=== PATIENT | female | born 1935 | race Caucasian/White ===

== ENCOUNTER → 2017-02-08 | Outpatient (REF) | payer MEDICARE, OTHER ==
[2017-02-08 12:15] LABS: ALBUMIN 3.7 GM/DL (3.2-5.2); ALBUMIN/GLOBULIN RATIO 1.23 (1.00-1.93); ALKALINE PHOSPHATASE 65 U/L (45-117); ALT/SGPT 17 U/L (12-78); ANION GAP 6 MEQ/L (8-16); AST/SGOT 17 U/L (15-37); BILIRUBIN,TOTAL 0.5 MG/DL (0.2-1.0); BLOOD UREA NITROGEN 12 MG/DL (7-18); CALCIUM LEVEL 9.5 MG/DL (8.8-10.2); CARBON DIOXIDE LEVEL 31 MEQ/L (21-32); CHLORIDE LEVEL 106 MEQ/L (98-107); CREATININE FOR GFR 0.69 MG/DL (0.55-1.02); GLOMERULAR FILTRATION RATE > 60.0 (>32); GLUCOSE, FASTING 127 MG/DL (83-110); POTASSIUM SERUM 4.4 MEQ/L (3.5-5.1); SODIUM LEVEL 143 MEQ/L (136-145); TOTAL PROTEIN 6.7 GM/DL (6.4-8.2)
== END ==
LOC: M SFHCPLAZ 09:35
PROVIDERS: ATTEND Internal Medicine
DX: R73.01 Impaired fasting glucose (principal); E89.0 Postprocedural hypothyroidism; M85.80 Other specified disorders of bone density and structure, unspecified site

== ENCOUNTER → 2017-06-15 | Outpatient (CLI) | payer MEDICARE, OTHER ==
[2017-06-15 13:13] LABS: ALBUMIN 3.7 GM/DL (3.2-5.2); ALBUMIN/GLOBULIN RATIO 1.37 (1.00-1.93); BILIRUBIN,DIRECT 0.2 MG/DL (0.0-0.2); BILIRUBIN,TOTAL 0.7 MG/DL (0.2-1.0); TOTAL PROTEIN 6.4 GM/DL (6.4-8.2)
== END ==
LOC: M WUC 08:49
PROVIDERS: ATTEND Nurse Practitioner Family
DX: E78.2 Mixed hyperlipidemia (principal)

== ENCOUNTER → 2017-08-02 | Outpatient (CLI) | payer MEDICARE, BC ==
--- NOTE | 2017-08-02 10:36 | REPMRS ---
Patient History The patient states she had a clinical breast exam in 07/2017. Patient is postmenopausal. Family history of breast cancer in paternal aunt at age 50 or over and prostate cancer in son at age 49. Taking unspecified hormones for 25 years. Digital Woman Screen Mammo: August 02, 2017 - Exam #: [id number] Bilateral CC and MLO view(s) were taken. Technologist: Linda Smith, Technologist Prior study comparison: July 28, 2016, digital woman screen mammo performed at [facility]. July 24, 2015, digital woman screen mammo performed at [facility]. FINDINGS: The breast tissue is heterogeneously dense. This may lower the sensitivity of mammography. There has been no change in the appearance of the mammogram from the prior studies. There is a moderate amount of residual fibroglandular tissue which is fairly symmetric. There is no interval development of dominant mass, areas of architectural distortion, or clustered microcalcification typical of malignancy. ASSESSMENT: BI-RADS/ACR category 1 mammogram. Negative. Recommendation Routine screening mammogram in 1 year (for women over age 40). This mammogram was interpreted with the aid of an FDA-approved computer-aided dectection system. Electronically Signed By: Michael Londono MD 08/02/17 [id number]
== END ==
LOC: M WHC 09:04
PROVIDERS: ATTEND Nurse Practitioner Family
DX: Z01.419 Encounter for gynecological examination (general) (routine) without abnormal findings (principal); Z12.31 Encounter for screening mammogram for malignant neoplasm of breast; R92.8 Other abnormal and inconclusive findings on diagnostic imaging of breast; Z78.0 Asymptomatic menopausal state; Z79.890 Hormone replacement therapy
CPT/HCPCS: G0101; G0202

== ENCOUNTER → 2017-08-11 | Outpatient (REF) | payer MEDICARE, OTHER ==
[2017-08-11 11:17] LABS: ALBUMIN 3.6 GM/DL (3.2-5.2); ALKALINE PHOSPHATASE 57 U/L (45-117); ALT/SGPT 24 U/L (12-78); ANION GAP 7 MEQ/L (8-16); AST/SGOT 15 U/L (15-37); BILIRUBIN,TOTAL 0.7 MG/DL (0.2-1.0); BLOOD UREA NITROGEN 10 MG/DL (7-18); CALCIUM LEVEL 9.3 MG/DL (8.8-10.2); CARBON DIOXIDE LEVEL 29 MEQ/L (21-32); CHLORIDE LEVEL 107 MEQ/L (98-107); CHOLESTEROL LEVEL 203 MG/DL (<200); CREATININE FOR GFR 0.61 MG/DL (0.55-1.02); GLOMERULAR FILTRATION RATE > 60.0 (>32); GLUCOSE, FASTING 95 MG/DL (83-110); POTASSIUM SERUM 4.5 MEQ/L (3.5-5.1); SODIUM LEVEL 143 MEQ/L (136-145); TOTAL PROTEIN 6.6 GM/DL (6.4-8.2); TRIGLYCERIDES LEVEL 191 MG/DL (<150)
== END ==
LOC: M SFHCPLAZ 07:49
PROVIDERS: ATTEND Internal Medicine
DX: R73.01 Impaired fasting glucose (principal); E78.00 Pure hypercholesterolemia, unspecified

== ENCOUNTER → 2018-02-14 | Outpatient (REF) | payer MEDICARE, OTHER ==
[2018-02-14 11:45] LABS: MEAN CORPUSCULAR HEMOGLOBIN 29.9 pg (27.0-33.0); MEAN CORPUSCULAR HGB CONC 32.6 g/dl (32.0-36.5); MEAN CORPUSCULAR VOLUME 91.7 fl (80.0-96.0); PLATELET COUNT, AUTOMATED 223 10^3/uL (150-450); RED BLOOD COUNT 4.69 10^6/uL (4.00-5.40); RED CELL DISTRIBUTION WIDTH 12.4 % (11.5-14.5); WHITE BLOOD COUNT 7.2 10^3/uL (4.0-10.0)
[2018-02-14 12:07] LABS: ESTIMATED AVERAGE GLUCOSE 126 MG/DL (60-110)
[2018-02-14 12:33] LABS: ALBUMIN 3.7 GM/DL (3.2-5.2); ALBUMIN/GLOBULIN RATIO 1.16 (1.00-1.93); ALKALINE PHOSPHATASE 67 U/L (45-117); ALT/SGPT 14 U/L (12-78); ANION GAP 5 MEQ/L (8-16); AST/SGOT 16 U/L (7-37); BILIRUBIN,TOTAL 0.6 MG/DL (0.2-1.0); BLOOD UREA NITROGEN 14 MG/DL (7-18); CALCIUM LEVEL 8.9 MG/DL (8.8-10.2); CARBON DIOXIDE LEVEL 30 MEQ/L (21-32); CHLORIDE LEVEL 111 MEQ/L (98-107); CHOLESTEROL LEVEL 163 MG/DL (<200); CHOLESTEROL RISK RATIO 3.975 (<5); CREATININE FOR GFR 0.66 MG/DL (0.55-1.30); GLOMERULAR FILTRATION RATE > 60.0 (>32); GLUCOSE, FASTING 100 MG/DL (70-100); HDL CHOLESTEROL 41 MG/DL (>40); LDL CHOLESTEROL 87.8 MG/DL (<100); MAGNESIUM LEVEL 2.3 MG/DL (1.8-2.4); NON-HDL-C 122 MG/DL; POTASSIUM SERUM 4.3 MEQ/L (3.5-5.1); SODIUM LEVEL 146 MEQ/L (136-145); TOTAL PROTEIN 6.9 GM/DL (6.4-8.2); TRIGLYCERIDES LEVEL 171 MG/DL (<150)
== END ==
LOC: M SFHCPLAZ 08:02
DX: Z79.890 Hormone replacement therapy (principal); I25.10 Atherosclerotic heart disease of native coronary artery without angina pectoris; R73.01 Impaired fasting glucose; E78.00 Pure hypercholesterolemia, unspecified; E89.0 Postprocedural hypothyroidism
CPT/HCPCS: 83735

== ENCOUNTER → 2018-08-03 | Outpatient (CLI) | payer MEDICARE, BC | LOC: M WHC 11:05 | DX: Z12.31 Encounter for screening mammogram for malignant neoplasm of breast (principal); Z01.419 Encounter for gynecological examination (general) (routine) without abnormal findings (principal); Z78.0 Asymptomatic menopausal state; Z92.29 Personal history of other drug therapy; Z12.12 Encounter for screening for malignant neoplasm of rectum | CPT/HCPCS: 77067 ==

== ENCOUNTER → 2018-08-29 | Outpatient (REF) | payer MEDICARE, OTHER ==
[2018-08-29 13:18] LABS: ESTIMATED AVERAGE GLUCOSE 117 MG/DL (60-110); HEMOGLOBIN A1c 5.7 %
[2018-08-29 13:36] LABS: ALBUMIN 3.8 GM/DL (3.2-5.2); ALBUMIN/GLOBULIN RATIO 1.27 (1.00-1.93); ALKALINE PHOSPHATASE 66 U/L (45-117); ALT/SGPT 16 U/L (12-78); ANION GAP 10 MEQ/L (8-16); AST/SGOT 19 U/L (7-37); BILIRUBIN,TOTAL 0.9 MG/DL (0.2-1.0); BLOOD UREA NITROGEN 12 MG/DL (7-18); CALCIUM LEVEL 8.8 MG/DL (8.8-10.2); CARBON DIOXIDE LEVEL 26 MEQ/L (21-32); CHLORIDE LEVEL 107 MEQ/L (98-107); CHOLESTEROL LEVEL 193 MG/DL (<200); CHOLESTEROL RISK RATIO 5.078 (<5); GLOMERULAR FILTRATION RATE > 60.0 (>32); GLUCOSE, FASTING 111 MG/DL (70-100); HDL CHOLESTEROL 38 MG/DL (>40); LDL CHOLESTEROL 115 MG/DL (<100); MAGNESIUM LEVEL 2.1 MG/DL (1.8-2.4); NON-HDL-C 155 MG/DL; POTASSIUM SERUM 4.6 MEQ/L (3.5-5.1); SODIUM LEVEL 143 MEQ/L (136-145); TOTAL PROTEIN 6.8 GM/DL (6.4-8.2); TRIGLYCERIDES LEVEL 201 MG/DL (<150)
== END ==
LOC: M SFHCPLAZ 07:50
DX: I25.10 Atherosclerotic heart disease of native coronary artery without angina pectoris (principal); R73.01 Impaired fasting glucose; E78.00 Pure hypercholesterolemia, unspecified; M85.80 Other specified disorders of bone density and structure, unspecified site
CPT/HCPCS: 83735

== ENCOUNTER → 2018-12-26 | Outpatient (REF) | payer MEDICARE, OTHER ==
[2018-12-26 10:41] LABS: HEMOGLOBIN A1c 6.1 %
[2018-12-26 10:53] LABS: ALBUMIN 3.8 GM/DL (3.2-5.2); ALT/SGPT 16 U/L (12-78); BILIRUBIN,TOTAL 0.8 MG/DL (0.2-1.0); BLOOD UREA NITROGEN 13 MG/DL (7-18); CALCIUM LEVEL 9.3 MG/DL (8.8-10.2); CARBON DIOXIDE LEVEL 31 MEQ/L (21-32); CHLORIDE LEVEL 106 MEQ/L (98-107); CHOLESTEROL LEVEL 177 MG/DL (<200); CHOLESTEROL RISK RATIO 4.116 (<5); CREATININE FOR GFR 0.68 MG/DL (0.55-1.30); FOLATE > 24.0 NG/ML; GLOMERULAR FILTRATION RATE > 60.0 (>32); GLUCOSE, FASTING 104 MG/DL (70-100); HDL CHOLESTEROL 43 MG/DL (>40); LDL CHOLESTEROL 98 MG/DL (<100); NON-HDL-C 134 MG/DL; POTASSIUM SERUM 4.6 MEQ/L (3.5-5.1); SODIUM LEVEL 142 MEQ/L (136-145); TOTAL PROTEIN 6.5 GM/DL (6.4-8.2); TRIGLYCERIDES LEVEL 181 MG/DL (<150)
[2018-12-26 11:07] LABS: HEMATOCRIT 45.4 % (36.0-47.0); HEMOGLOBIN 14.6 g/dl (12.0-15.5); MEAN CORPUSCULAR HEMOGLOBIN 30.5 pg (27.0-33.0); MEAN CORPUSCULAR HGB CONC 32.2 g/dl (32.0-36.5); MEAN CORPUSCULAR VOLUME 94.8 fl (80.0-96.0); PLATELET COUNT, AUTOMATED 227 10^3/uL (150-450); RED BLOOD COUNT 4.79 10^6/uL (4.00-5.40); WHITE BLOOD COUNT 6.7 10^3/uL (4.0-10.0)
[2018-12-27 11:05] LABS: VITAMIN B12 LEVEL 1101 PG/ML (232-1245)
== END ==
LOC: M SFHCPLAZ 08:01
PROVIDERS: ATTEND Internal Medicine
DX: G62.9 Polyneuropathy, unspecified (principal); E78.00 Pure hypercholesterolemia, unspecified; R73.01 Impaired fasting glucose; E89.0 Postprocedural hypothyroidism

== ENCOUNTER → 2019-07-19 | Outpatient (REF) | payer MEDICARE, OTHER ==
[2019-07-19 11:57] LABS: ALBUMIN 3.6 GM/DL (3.2-5.2); ALT/SGPT 16 U/L (12-78); BILIRUBIN,TOTAL 0.8 MG/DL (0.2-1.0); BLOOD UREA NITROGEN 12 MG/DL (7-18); CALCIUM LEVEL 9.4 MG/DL (8.8-10.2); CARBON DIOXIDE LEVEL 29 MEQ/L (21-32); CHLORIDE LEVEL 109 MEQ/L (98-107); CHOLESTEROL LEVEL 149 MG/DL (<200); CHOLESTEROL RISK RATIO 3.547 (<5); CREATININE FOR GFR 0.74 MG/DL (0.55-1.30); GLOMERULAR FILTRATION RATE > 60.0 (>32); GLUCOSE, FASTING 109 MG/DL (70-100); HDL CHOLESTEROL 42 MG/DL (>40); LDL CHOLESTEROL 80 MG/DL (<100); NON-HDL-C 107 MG/DL; POTASSIUM SERUM 4.5 MEQ/L (3.5-5.1); SODIUM LEVEL 143 MEQ/L (136-145); TOTAL PROTEIN 6.4 GM/DL (6.4-8.2); TRIGLYCERIDES LEVEL 134 MG/DL (<150)
[2019-07-19 12:16] LABS: MALB URINE SIEMENS 21.3 MG/L; MAU/CREAT RATIO 13.7 MCG/MG (0.0-30.0)
== END ==
LOC: M SFHCPLAZ 07:50
PROVIDERS: ATTEND Internal Medicine
DX: E78.00 Pure hypercholesterolemia, unspecified (principal); R73.01 Impaired fasting glucose; E89.0 Postprocedural hypothyroidism

== ENCOUNTER → 2019-08-03 | Outpatient (CLI) | payer MEDICARE, BC ==
--- NOTE | 2019-08-03 10:58 | REP ---
BILATERAL SCREENING DIGITAL MAMMOGRAM WITH 3D TOMOSYNTHESIS: There are no palpable abnormalities or other breast complaints. The the patient states she had a clinical breast examination July,. The the patient states she performs self-breast examinations 12 times per year. The Tyrer Cuzick Score is: 1.0% . Comparison is 07/23/2014. The breasts are heterogeneously dense, which could obscure small masses. There is no dominant mass, micro calcific cluster or architectural distortion that would indicate malignancy. There are no additional findings on 3D tomosynthesiss. There is no change from the prior study. Impression: BIRADS/ACR category 1 mammogram. Negative. Recommendation: Routine annual screening mammography. Because of the increased breast density, annual adjunctive breast MRI in addition to screening mammography is recommended. These can be performed at alternating six month intervals. This mammogram was interpreted with the aid of a FDA approved computer-aided detection system. A. Negative mammogram reports should not delay biopsy if a dominant or clinically suspicious mass is present. B. Not all breast cancers are identified by mammography or tomosynthesis. C. Adenosis and dense breasts may obscure an underlying neoplasm. Patient letter M1 dense breasts. Electronically Signed by Michael Odell MD 08/03/2019 10:50 A
== END ==
LOC: M WHC 08:27
PROVIDERS: ATTEND Nurse Practitioner Family
DX: Z01.419 Encounter for gynecological examination (general) (routine) without abnormal findings (principal); Z12.31 Encounter for screening mammogram for malignant neoplasm of breast; Z12.12 Encounter for screening for malignant neoplasm of rectum
CPT/HCPCS: 77063; 77067; 82270; G0101

== ENCOUNTER → 2020-07-08 | Outpatient (CLI) | payer MEDICARE, OTHER ==
[2020-07-08 13:02] LABS: HEMATOCRIT 46.7 % (36.0-47.0); HEMOGLOBIN 14.9 g/dl (12.0-15.5); MEAN CORPUSCULAR HEMOGLOBIN 30.2 pg (27.0-33.0); MEAN CORPUSCULAR HGB CONC 31.9 g/dl (32.0-36.5); MEAN CORPUSCULAR VOLUME 94.7 fl (80.0-96.0); PLATELET COUNT, AUTOMATED 241 10^3/uL (150-450); RED BLOOD COUNT 4.93 10^6/uL (4.00-5.40); WHITE BLOOD COUNT 7.7 10^3/uL (4.0-10.0)
[2020-07-08 13:26] LABS: ALBUMIN 3.6 GM/DL (3.2-5.2); ALT/SGPT 16 U/L (12-78); BILIRUBIN,TOTAL 0.8 MG/DL (0.2-1.0); BLOOD UREA NITROGEN 13 MG/DL (7-18); CALCIUM LEVEL 9.5 MG/DL (8.8-10.2); CARBON DIOXIDE LEVEL 31 MEQ/L (21-32); CHLORIDE LEVEL 108 MEQ/L (98-107); CHOLESTEROL LEVEL 151 MG/DL (<200); CHOLESTEROL RISK RATIO 3.355 (<5); GLOMERULAR FILTRATION RATE > 60.0 (>32); GLUCOSE, FASTING 98 MG/DL (70-100); HDL CHOLESTEROL 45 MG/DL (>40); LDL CHOLESTEROL 82 MG/DL (<100); MAGNESIUM LEVEL 2.4 MG/DL (1.8-2.4); NON-HDL-C 106 MG/DL; POTASSIUM SERUM 4.1 MEQ/L (3.5-5.1); SODIUM LEVEL 144 MEQ/L (136-145); TOTAL 25(OH) VITAMIN D 63.5 NG/ML (30.0-100.0); TOTAL PROTEIN 6.6 GM/DL (6.4-8.2); TRIGLYCERIDES LEVEL 122 MG/DL (<150)
[2020-07-08 13:59] LABS: HEMOGLOBIN A1c 5.8 %
== END ==
LOC: M PLALAB 08:02
PROVIDERS: ATTEND Internal Medicine
DX: R73.01 Impaired fasting glucose (principal); G62.9 Polyneuropathy, unspecified; E61.2 Magnesium deficiency; Z13.29 Encounter for screening for other suspected endocrine disorder

== ENCOUNTER → 2020-08-07 | Outpatient (CLI) | payer MEDICARE, BC, OTHER ==
--- NOTE | 2020-08-07 10:48 | REPMRS ---
Patient History The patient states she had a clinical breast exam in 07/2020. Patient is postmenopausal. Family history of breast cancer at age 50 or over in paternal aunt, prostate cancer at age 49 in son, prostate cancer under age 50 in unspecified relative. Taking unspecified hormones for 28 years. 3D TOMOSYNTHESIS WAS PERFORMED. The [facility] lifetime risk for breast cancer is 0.5%. VOLPARA DENSITY C. Digital Woman Screen Mammo: August 07, 2020 - Exam #: [id number] Bilateral CC and MLO view(s) were taken. Technologist: Linda Smith, Technologist Prior study comparison: August 03, 2019, bilateral digital woman screen mammo performed at [facility]. August 03, 2018, bilateral digital woman screen mammo performed at [facility]. FINDINGS: The breast tissue is heterogeneously dense. This may lower the sensitivity of mammography. There has been no change in the appearance of the mammogram from the prior studies. There is a moderate amount of residual fibroglandular tissue which is fairly symmetric. There is no interval development of dominant mass, areas of architectural distortion, or clustered microcalcification typical of malignancy. Assessment: BI-RADS/ACR category 1 mammogram. Negative Mammogram. Recommendation Routine screening mammogram in 1 year (for women over age 40). This mammogram was interpreted with the aid of an FDA-approved computer-aided dectection system. Electronically Signed By: Michael Londono MD 08/07/20 2423
== END ==
LOC: M WHC 08:44
PROVIDERS: ATTEND Nurse Practitioner Family
DX: Z12.31 Encounter for screening mammogram for malignant neoplasm of breast (principal); Z78.0 Asymptomatic menopausal state; Z80.42 Family history of malignant neoplasm of prostate; Z92.29 Personal history of other drug therapy

== ENCOUNTER → 2021-06-16 | Outpatient (CLI) | payer MEDICARE, BC, OTHER ==
[2021-06-16 10:42] LABS: BASO % 0.5 % (0.0-1.0); EOS # 0.2 10^3/uL (0.0-0.5); HEMATOCRIT 46.2 % (36.0-47.0); HEMOGLOBIN 14.6 g/dl (12.0-15.5); LYMPH % 26.7 % (24.0-44.0); MEAN CORPUSCULAR HEMOGLOBIN 29.7 pg (27.0-33.0); MEAN CORPUSCULAR HGB CONC 31.6 g/dl (32.0-36.5); MEAN CORPUSCULAR VOLUME 94.1 fl (80.0-96.0); MONO # 0.5 10^3/uL (0.0-0.8); MONO % 6.7 % (2.0-8.0); NEUTROPHILS # 4.7 10^3/uL (1.5-8.5); NEUTROPHILS % 63.8 % (36.0-66.0); PLATELET COUNT, AUTOMATED 251 10^3/uL (150-450); RED BLOOD COUNT 4.91 10^6/uL (4.00-5.40); WHITE BLOOD COUNT 7.4 10^3/uL (4.0-10.0)
[2021-06-16 11:16] LABS: ALBUMIN 3.7 GM/DL (3.2-5.2); ALT/SGPT 16 U/L (12-78); BLOOD UREA NITROGEN 17 MG/DL (7-18); CALCIUM LEVEL 9.3 MG/DL (8.8-10.2); CARBON DIOXIDE LEVEL 29 MEQ/L (21-32); CHLORIDE LEVEL 110 MEQ/L (98-107); CHOLESTEROL LEVEL 148 MG/DL (<200); CHOLESTEROL RISK RATIO 3.083 (<5); CREATININE FOR GFR 0.65 MG/DL (0.55-1.30); GLOMERULAR FILTRATION RATE > 60.0 (>32); GLUCOSE, FASTING 108 MG/DL (70-100); HDL CHOLESTEROL 48 MG/DL (>40); LDL CHOLESTEROL 74 MG/DL (<100); NON-HDL-C 100 MG/DL; SODIUM LEVEL 144 MEQ/L (136-145); TOTAL PROTEIN 6.7 GM/DL (6.4-8.2); TRIGLYCERIDES LEVEL 132 MG/DL (<150)
[2021-06-16 11:36] LABS: HEMOGLOBIN A1c 5.5 %
== END ==
LOC: M PLALAB 07:06
PROVIDERS: ATTEND Internal Medicine
DX: R73.01 Impaired fasting glucose (principal); G62.9 Polyneuropathy, unspecified; E89.0 Postprocedural hypothyroidism; E78.00 Pure hypercholesterolemia, unspecified

== ENCOUNTER → 2021-08-20 | Outpatient (CLI) | payer MEDICARE, BC, OTHER | LOC: M WHC 08:53 | PROVIDERS: ATTEND Nurse Practitioner Women's Health | DX: Z01.419 Encounter for gynecological examination (general) (routine) without abnormal findings (principal) ==

== ENCOUNTER 2021-10-03 10:23 | Emergency (ER) | payer MEDICARE, BC, OTHER ==
[~2021-10-03] VITALS: Ht 172.7 cm; Wt 65.0 kg
[2021-10-03] MEDS ORDERED: ASPIRIN 81 MG CHEW TABLET PO ONE (10:55)
[2021-10-03] MEDS ORDERED: DOCU-153 PO (10:57)
[2021-10-03] MEDS ORDERED: ECOT81TA5 PO (10:57)
[2021-10-03] MEDS ORDERED: LOSA25TA14 PO (10:57)
--- NOTE | 2021-10-03 11:12 | REP ---
INDICATION: CHEST PAIN COMPARISON: 04/22/2018 TECHNIQUE: Portable AP view of the chest FINDINGS: The mediastinum and cardiac silhouette are stable and within normal limits for portable technique. The lung duron are clear without acute consolidation, effusion, or pneumothorax. Skeletal structures are intact. IMPRESSION: No acute cardiopulmonary process appreciated. <Electronically signed by Lamberto Enriquez > 10/03/21 1100
[2021-10-03 11:19] LABS: BASO % 0.4 % (0.0-1.0); EOS # 0.1 10^3/uL (0.0-0.5); EOS % 1.1 % (0.0-3.0); HEMATOCRIT 44.9 % (36.0-47.0); HEMOGLOBIN 14.5 g/dl (12.0-15.5); LYMPH # 1.2 10^3/uL (1.5-5.0); LYMPH % 11.2 % (24.0-44.0); MEAN CORPUSCULAR HEMOGLOBIN 29.8 pg (27.0-33.0); MEAN CORPUSCULAR HGB CONC 32.3 g/dl (32.0-36.5); MEAN CORPUSCULAR VOLUME 92.4 fl (80.0-96.0); MONO # 0.5 10^3/uL (0.0-0.8); MONO % 4.4 % (2.0-8.0); NEUTROPHILS % 82.4 % (36.0-66.0); PLATELET COUNT, AUTOMATED 229 10^3/uL (150-450); RED BLOOD COUNT 4.86 10^6/uL (4.00-5.40)
[2021-10-03 11:27] LABS: INR 1.01; PROTHROMBIN TIME 13.7 SECONDS (12.7-14.5)
[2021-10-03 11:28] LABS: PARTIAL THROMBOPLASTIN TIME 29.4 SECONDS (25.9-37.0)
--- OUTSIDE RECORDS SUMMARY | 2021-10-03 11:34 | CCD | Continuity of Care Document ---
Author Author Linda WHEELER RECORDS MANAGEMENT MANAGER-C Organization Unknown Address [address], [address] [place] [address] Phone [phone] Care Team Providers Care Hand Stapler Name Role Phone Hero Rizzo MD [facility] [phone] Problems Description No Information Available Social History Type Date Description Comments Sex Unknown Tobacco Use Start: Unknown End: Unknown Former Cigarette Smo ker Quit 1967 ETOH Use Denies alcohol use Tobacco Use Start: Unknown End: Unknown Patient is a former smoker quit in quit in [place] Exposure moderate amount of sun exposure Sun Exposure Has experienced blistering from sunburns Sun Exposure Has never used tanning bed Sun Exposure Uses > 30 SPF Allergies and adverse reactions Active Allergies Criticality Reaction | Severity Comments Date Penicillin Unable to assess criticality 02/15/2008 Demerol Unable to assess criticality 02/15/2008 Ticlid Unable to assess criticality 02/15/2008 Clarinex Unable to assess criticality 02/15/2008 Naproxen Unable to assess criticality 02/15/2008 Oxycontin Unable to assess criticality 02/15/2008 Darvocet Unable to assess criticality 02/15/2008 Protonix Unable to assess criticality 03/11/2010 Actonel Unable to assess criticality 03/11/2010 sulfa Unable to assess criticality 03/11/2010 Nortriptyline Unable to assess criticality 04/25/2015 Lyrica Unable to assess criticality 04/25/2015 Cymbalta Unable to assess criticality 04/25/2015 Gabapentin Unable to assess criticality 04/25/2015 Lisinopril Unable to assess criticality 07/31/2019 Crestor Unable to assess criticality 07/31/2019 Medications Active Medications SIG Qnty Indications Ordering Provide r Date CBD Relieving Salve From Hemp Phyl M dayami, [facility] 07/31/2019 Centrum Silver Unknown Turmeric Curcumin Unknown 000 Probiotic Unknown Carvedilol Unknown Losartan Unknown Nitro Unknown Stool Softener Unknown Estrace Unknown Non-Aspirin PM Extra Strength Unknow n Magnesium Unknown Calcium + D Unknown Folic Acid Unknown Vitamin B12 Unknown Estradiol Unknown Medroxyprogesterone Acetate Unknown Vitamin D3 Unknown Cranberry Unknown Fish Oil Unknown Vitamin C Unknown Aspirin Unknown Immunizations Description No Information Available Vital Signs Date Vital Result Comment 08/04/2021 7:59am BP Systolic 132 mmHg BP Diastolic 82 mmHg Heart Rate 74 /min Respiratory Rate 16 /min 07/31/2020 8:25am BP Systolic 122 mmHg BP Diastolic 82 mmHg Body Temperature 97.6 F Results Description No Information Available Procedures Date Code Description Status 08/04/2021 88933 Office/Outpatient Established Mo d MDM 30-39 Min Completed Medical Devices Description No Information Available Encounters Type Date Location Provider Dx Diagnosis Office Visit 08/04/2021 8:00a Main Office CHACHO Ann D 22.5 Melanocytic nevi of trunk L81.4 Other melanin hyperpigmentat ion D18.01 Hemangioma of skin and subcu taneous tissue L82.1 Other seborrheic keratosis D22.62 Melanocytic nevi of left upp er limb, including shoulder D22.72 Melanocytic nevi of left low er limb, including hip D22.71 Melanocytic nevi of right lo wer limb, including hip I83.93 Asymptomatic varicose veins of bilateral lower extremities Z12.83 Encounter for screening for malignant neoplasm of skin Assessments Date Code Description Provider 08/04/2021 D22.5 Melanocytic nevi of trunk CHACHO Ann 08/04/2021 L81.4 Other melanin hyperpigmentation CHACHO Ann 08/04/2021 D18.01 Hemangioma of skin and subcutane ous tissue CHACHO Ann 08/04/2021 L82.1 Other seborrheic keratosis CHACHO Franco 08/04/2021 D22.62 Melanocytic nevi of left upper l imb, including shoulder CHACHO Ann 08/04/2021 D22.72 Melanocytic nevi of left lower l imb, including hip CHACHO Ann 08/04/2021 D22.71 Melanocytic nevi of right lower limb, including hip CHACHO Ann 08/04/2021 I83.93 Asymptomatic varicose veins of b ilateral lower extremities CHACHO Ann 08/04/2021 Z12.83 Encounter for screening for [facility] neoplasm of skin CHACHO Ann Plan of Treatment Future Appointment(s):* 08/05/2022 8:00 am - CHACHO Ann at Main Office 08/04/2021 - CHACHO Ann* D22.5 Melanocytic nevi of trunk* Comments:* Nevi on trunk appear healthy. Monitor for changes. Literature given on how to perform monthly self skin exam. Sun protection and sunscreen use discussed. Should any moles change in shape or color, itch, bleed or burn, pt will contact office for evaluation sooner than their interval appointment. * L81.4 Other melanin hyperpigmentation* Comments:* Sunscreen use and sun protection discussed. * D18.01 Hemangioma of skin and subcutaneous tissue* Comments:* Reassurance. * L82.1 Other seborrheic keratosis* Comments:* Reassurance.Discussed seborrheic keratoses are benign warty growths, patients will get more of them as they age. * D22.62 Melanocytic nevi of left upper limb, including shoulder* Comments:* Nevi on L arm appear healthy. Monitor for changes. * D22.72 Melanocytic nevi of left lower limb, including hip* Comments:* Nevi on L leg appear healthy. Monitor for changes. * D22.71 Melanocytic nevi of right lower limb, including hip* Comments:* Nevi on R leg appear healthy. Monitor for changes. * I83.93 Asymptomatic varicose veins of bilateral lower extremities* Comments:* Discussed that no treatment is necessary for these unless they become symptomatic.Reassurance.Call with problems. * Z12.83 Encounter for screening for malignant neoplasm of skin* Comments:* See above. * Follow up:* Yearly/PRN - [facility] Functional Status Description No Information Available Mental Status Description No Information Available Referrals Description No Information Available"
--- OUTSIDE RECORDS SUMMARY | 2021-10-03 11:34 | CCD | Continuity of Care Document ---
Author Organization Unknown Address Unknown Phone Unavailable Care Team Providers Care Adoption Services Manager Name Role Phone Heor Rizzo MD [facility] [phone] Lamberto Torres [facility] [phone] Problems Active Problems Provider Date Coronary arteriosclerosis ESTELA Araujo Onset: 02/17/2012 Old myocardial infarction ESTELA Araujo Onset: 02/17/2012 Patient post percutaneous transluminal coronary angiop lasty ESTELA Araujo Onset: 02/17/2012 Benign hypertensive heart disease without congestive h eart failure ESTELA Araujo Onset: 02/17/2012 Electrocardiogram abnormal ESTELA Araujo Onset : 02/17/2012 Premature beats ESTELA Araujo Onset: 02/16 Pure hypercholesterolemia ESTELA Araujo Onset: 02/17/2012 Heart murmur Emilee Barbosa NP Onset: 10/19/2014 Aortic valve disorder Emilee Barbosa NP Onset: 04/19/2015 Mitral valve disorder Emilee Barbosa NP Onset: 04/19/2015 Mixed hyperlipidemia CONSUELO Hernandez Onset: 03/16/2018 Dietary management surveillance CONSUELO Hernandez Onset: 03/16/2018 Dyspnea CONSUELO Hernandez Onset: 04/22/2018 Other cardiomyopathies CONSUELO Hernandez Onset: 8 Chronic ischemic heart disease CONSUELO Hernandez Onset: 0 05/20/2018 Hypertensive heart disease with heart failure CONSUELO Rojas Onset: 06/13/2019 Social History Type Date Description Comments Sex Unknown Tobacco Use Start: Unknown End: Unknown Former Cigarette Smo ker up to 1ppd x20 yrs, quit 1971 ETOH Use Does not consume alcohol Tobacco Use Start: Unknown End: Unknown Patient is a former smoker HX of 20 yrs. 1ppd quit in her early 30's Smoking Status Reviewed: 01/17/21 Patient is a former smoker HX of 20 yrs. 1ppd quit in her early 30's Exercise Type/Frequency Walks daily 10-20 mi n in better weather Exercise Limitations Neuropathy Exercise Limitations Fatigue Exercise Limitations Orthopedic Problem torn rot ator cuff - right Allergies, Adverse Reactions, Alerts Active Allergies Criticality Reaction | Severity Comments Date Penicillin Unable to assess criticality n/v 11/23/2006 Naproxen Unable to assess criticality "numbness" i n lips, "flaky" 11/23/2006 Ticlid Unable to assess criticality rash, fever 11/23/2006 Demerol Unable to assess criticality vomiting, na usea 11/23/2006 Sulfa Unable to assess criticality rash 11/23/2006 Morphine Sulfate Unable to assess criticality vomiting 11/23/2006 Oxycontin Unable to assess criticality vomiting 11/23/2006 Clarinex Unable to assess criticality palpitations 11/23/2006 Protonix Unable to assess criticality difficulty s wallowing 09/23/2007 Propoxyphene Unable to assess criticality nausea 08/20/2011 Darvocet Unable to assess criticality nausea 08/20/2011 Actonel Unable to assess criticality jaw pain 08/20/2011 Lyrica Unable to assess criticality numb lips/blurred vision 10/19/2014 Nortriptyline Unable to assess criticality nausea, emile rrhea 04/28/2017 Cymbalta Unable to assess criticality diarrhea, na usea 04/28/2017 Gabapentin Unable to assess criticality dizziness, t ired 05/15/2018 Lisinopril Unable to assess criticality cough 12/06/2019 Crestor Unable to assess criticality fatigue 12/06/2019 Medications Active Medications SIG Qnty Indications Ordering Provide r Date Medroxyprogesterone Acetate 2.5mg Tablets 1 by mouth 3 times weekly Hero Rizzo MD 01/16 Estradiol 0.5mg Tablets 1 by mouth 3 times weekly in winter; 1 by mouth daily in summer Hero Segundo MD 01/16/2021 Stool Softener 100mg Capsules 1 by mouth twice a day Unknown 12/06/2019 Turmeric Curcumin 500mg Capsules 1 by mouth every day Unknown 12/06/2019 Livalo 2mg Tablets 1 b y mouth once daily 90tabs Omer Roche MD 06/13/2019 Probiotic Capsules 1 by mouth every day Unknown 03/21/2019 Losartan Potassium 25mg Tablets take 1 tablet by mouth every day 30tabs I25.5 Aleksey Fonseca MD 0 07/26/2018 Fish Oil 1000mg Capsules 1 by mouth every day Unknown 05/15/2018 Tylenol PM Extra Strength 500-25mg Tablets 2 by mouth every night at bedtime as needed Unknown 05/15/2018 Calcium 600+D Tablets 2 po b id Unknown 04/26/2016 Nitrostat 0.4mg Tablets Sub 1 sl every 5min x3 as needed for chest pain 25tabs Omer Roche MD 09/18/2013 Cranberry 500mg Capsules 1 po daily Hero Rizzo MD 02/17/2012 Vitamin D-1000 1000Unit Tablets daily Hero Rizzo MD 08/20/2011 Magnesium 500mg Tablets 1 po qd Hero Rizzo MD 06/27/2010 Folic Acid 400mcg Tablets 1 P O daily Hero Rizzo MD 10/31/2008 Aspir-[address] 1 PO daily Aleksey Fonseca MD Vitamin C 500mg Tablets 2 po qd Blade Bravo MD Multi-Vitamin Tablets Daily Hero Rizzo MD Estrace 0.1mg/GM Cream as Dir ected Hero Rizzo MD B-Complex/B-12 TR B-12 TR Tablets ER 1 po daily Unknown Immunizations Description No Information Available Vital Signs Date Vital Result Comment 01/17/2021 8:28am Weight 146.00 lb Home Weight 144lb Height 69 inches 5'9" BMI (Body Mass Index) 21.6 kg/m2 Heart Rate 94 /min BP Systolic Sitting 124 mmHg Ra, medium cuff BP Diastolic Sitting 80 mmHg Ra, medium cuff 07/11/2020 8:41am Weight 148.00 lb Home Weight 147lb Height 69 inches 5'9" BMI (Body Mass Index) 21.9 kg/m2 Heart Rate 95 /min BP Systolic Sitting 136 mmHg BP Diastolic Sitting 70 mmHg Results Test Acquired Date Facility Test Result H/L Range Note CBC without Differential 06/16/2021 [facility] - not inter faced (315)- - White Blood Count 7.4 5.0-10.0 Red Blood Count 4.91 4.00-5.40 Platelets 251 172-450 Hemoglobin 14.6 Hematocrit 46.2 CMP 06/16/2021 [facility] - not interfaced (315)- - Albumin Serum/Plasma 3.7 Alt - SGPT 16 Calcium Ser/Plasma Mass/Vol 9.3 Carbon Dioxide Ser/Plasm 29 Chloride Serum/Plasma 110 Alkaline Phosphatase 68 Potassium 4.0 Protein Total 6.7 Sodium 144 Ast - Sgot 12 BUN - Urea Nitrogen 17 Glucose 108 83-110 Creatinine For GFR 0.65 Lipid Profile/Cardiac Risk Pro 06/16/2021 [facility] - not interfaced (315)- - Triglycerides 132 <150 Cholesterol 148 <200 HDL 48 >40.0 LDL Cholesterol 74 Chol/HDL Ratio 3.083 <5 Laboratory test finding 06/16/2021 [facility] - not interf aced (315)- - Thyroid Stimulating Hormone 2.510 Hemoglobin A1c 06/16/2021 [facility] - not interfaced (315)- - Hemoglobin A1c 5.5 Procedures Date Code Description Status 01/17/2021 05078 Office/Outpatient Established Mo d MDM 30-39 Min Completed 01/17/2021 49502 ECG 12-Lead Completed Medical Devices Description No Information Available Encounters Type Date Location Provider Dx Diagnosis Office Visit 01/17/2021 8:15a Main Office CONSUELO Cooper I25 .10 Athscl heart disease of [place] coronary artery w/o ang pctrs I25.5 Ischemic cardiomyopathy I11.0 Hypertensive heart disease w ith heart failure E78.2 Mixed hyperlipidemia R94.31 Abnormal electrocardiogram [ ECG] [EKG] Z71.3 Dietary counseling and surve illance Assessments Date Code Description Provider 01/17/2021 I25.10 Atherosclerotic heart disease of [place] coronary artery with CONSUELO Cooper 01/17/2021 I25.5 Ischemic cardiomyopathy CONSUELO White 01/17/2021 I11.0 Hypertensive heart disease with heart failure CONSUELO Cooper 01/17/2021 E78.2 Mixed hyperlipidemia CONSUELO Knox 01/17/2021 R94.31 Abnormal electrocardiogram [ECG] [EKG] CONSUELO Cooper 01/17/2021 Z71.3 Dietary counseling and surveilla nce CONSUELO Cooper Plan of Treatment Future Appointment(s):* 07/22/2021 8:15 am - CONSUELO Cooper at Main Office 01/17/2021 - CONSUELO Cooper* I25.10 Atherosclerotic heart disease of [place] coronary artery with* Recommendations:* Continue aspirin and losartan at the current dosages Advised patient to contact our office with any chest pain, shortness of breath, new or concerning symptoms * I25.5 Ischemic cardiomyopathy* Recommendations:* Please limit your salt to less than 2000 mg daily and fluid to less than 1.5 L per day. Please alert our office with a weight gain of > 3 lbs, onset of shortness of breath, or lower extremity edema * I11.0 Hypertensive heart disease with heart failure* Recommendations:* Continue losartan at the current dosage Advised patient to monitor blood pressures at home and to alert our office with readings >140/>90 * E78.2 Mixed hyperlipidemia* Recommendations:* Continue Livalo at the current dosage * R94.31 Abnormal electrocardiogram [ECG] [EKG]* Recommendations:* No further evaluation is needed at this time. * Z71.3 Dietary counseling and surveillance* Recommendations:* Recommended for patient to follow a more whole food diet. Advised patient to avoid overly processed foods and packaged foods. Advised patient to avoid sodas, juices and other liquid calories. Recommended at least 30 minutes of exercise 3 days a week. * All * Follow up:* Follow up in 6 months Functional Status Functional Condition Comment Date Status Independent with all ADL's Activ e Mental Status Description No Information Available Referrals Description No Information Available
--- OUTSIDE RECORDS SUMMARY | 2021-10-03 11:34 | CCD | Continuity of Care Document ---
Author Author Linda VALLECILLO Organization Unknown Address [address] [place] [address] [place] [address] Phone [phone] Care Team Providers Care Ceo And President Name Role Phone Hero Rizzo MD AUTM [phone] Lamberto Torres AUTM [phone] Problems Active Problems Provider Date Coronary arteriosclerosis [...] in her early 30's Smoking Status Reviewed: 07/22/21 Patient is a former smoker HX of [...] SIG Qnty Indications Ordering Provide r Date Vitamin D3 50mcg (1999 Ut) Capsule s 1 by mouth every day Unknown 07/21/2021 Estradiol 0.5mg Tablets 1 by mouth 3 times weekly in winter; 1 by mouth daily in summer Hero Segundo MD 01/16/2021 Medroxyprogesterone Acetate 2.5mg Tablets 1 by mouth 3 times weekly Hero Rizzo MD 01/16 Stool Softener 100mg Capsules 1 by mouth twice a day Unknown 12/06/2019 Turmeric Curcumin 500mg Capsules 1 by mouth every day Unknown 12/06/2019 Livalo 2mg Tablets 1 b y mouth once daily 90tabs Omer Roche MD 06/13/2019 Probiotic Capsules 1 by mouth every day Unknown 03/21/2019 Losartan Potassium 25mg Tablets take 1 tablet by mouth every day 90tabs I25.5 Aleksey Fonseca MD 0 07/26/2018 Fish [...] 1 po daily Hero Rizzo MD 02/17/2012 Magnesium 500mg Tablets 1 po qd Hero [...] TR Tablets ER 1 po daily Unknown Covid-19 vaccine, Unspecified Inj ection Unknown Covid-19 vaccine, Unspecified Inj ection Unknown Immunizations Description No Information Available Vital Signs Date Vital Result Comment 07/22/2021 8:09am Weight 145.00 lb Home Weight 143lb Height 69 inches 5'9" BMI (Body Mass Index) 21.4 kg/m2 Heart Rate 91 /min 01/17/2021 8:28am Weight 146.00 lb Home Weight 144lb Height 69 inches 5'9" BMI (Body Mass Index) 21.6 kg/m2 Heart Rate 94 /min BP Systolic Sitting 124 mmHg Ra, medium cuff BP Diastolic Sitting 80 mmHg Ra, medium cuff Results Test Acquired Date Facility Test Result H/L Range Note CBC without Differential 06/16/2021 [facility] - not inter faced (315)- - White Blood Count 7.4 5.0-10.0 Red Blood Count 4.91 4.00-5.40 Platelets 251 172-450 Hemoglobin 14.6 Hematocrit 46.2 CMP 06/16/2021 [facility] - not interfaced (315)- - Albumin Serum/Plasma 3.7 Alt - SGPT 16 Calcium Ser/Plasma Mass/Vol 9.3 Carbon Dioxide Ser/Plasm 29 Chloride Serum/Plasma 110 Alkaline Phosphatase 68 Potassium 4.0 Protein Total 6.7 Sodium 144 Ast - Sgot 12 BUN - Urea Nitrogen 17 Glucose 108 83-110 Creatinine For GFR 0.65 Lipid Profile/Cardiac Risk Pro 06/16/2021 [facility] - not interfaced (315)- - Triglycerides 132 <150 Cholesterol 148 <200 HDL 48 >40.0 LDL Cholesterol 74 Chol/HDL Ratio 3.083 <5 Laboratory test finding 06/16/2021 [facility] - not interf aced (315)- - Thyroid Stimulating Hormone 2.510 Hemoglobin A1c 06/16/2021 [facility] - not interfaced (315)- - Hemoglobin A1c 5.5 Procedures Date Code Description Status 07/22/2021 07295 Office/Outpatient Established Mo d MDM 30-39 Min Completed 07/22/2021 31573 ECG 12-Lead Completed Medical Devices Description No Information Available Encounters Type Date Location Provider Dx Diagnosis Office Visit 07/22/2021 8:15a Main Office CONSUELO Cooper I25 .10 Athscl heart disease of [place] coronary artery w/o ang pctrs I25.5 Ischemic cardiomyopathy I11.0 Hypertensive heart disease w ith heart failure E78.2 Mixed hyperlipidemia R94.31 Abnormal electrocardiogram [ ECG] [EKG] Z71.3 Dietary counseling and surve illance Assessments Date Code Description Provider 07/22/2021 I25.10 Atherosclerotic heart disease of [place] coronary artery with CONSUELO Cooper 07/22/2021 I25.5 Ischemic cardiomyopathy CONSUELO White 07/22/2021 I11.0 Hypertensive heart disease with heart failure CONSUELO Cooper 07/22/2021 E78.2 Mixed hyperlipidemia CONSUELO Knox 07/22/2021 R94.31 Abnormal electrocardiogram [ECG] [EKG] CONSUELO Cooper 07/22/2021 Z71.3 Dietary counseling and surveilla nce CONSUELO Cooper Plan of Treatment Future Appointment(s):* 01/21/2022 8:15 am - CONSUELO Cooper at Main Office 07/22/2021 - CONSUELO Cooper* I25.10 Atherosclerotic heart disease of [place] coronary artery with* Recommendations:* Continue aspirin and losartan at the current dosages Advised patient to contact our office with any chest pain, shortness of breath, new or concerning symptoms * I25.5 Ischemic cardiomyopathy* Recommendations:* Please alert our office with a weight gain of > 3 lbs, onset of shortness of breath, or lower extremity edema * I11.0 Hypertensive heart disease with heart failure* Recommendations:* Continue losartan at the current dosage Advised patient to monitor blood pressures at home and to alert our office with readings >140/>90 * E78.2 Mixed hyperlipidemia* Recommendations:* Try off Livalo for 1 week and see if side effects yaz * R94.31 Abnormal electrocardiogram [ECG] [EKG]* Recommendations:* [...]
--- OUTSIDE RECORDS SUMMARY | 2021-10-03 11:34 | CCD ---
Author Author [facility] Organization [facility] Address Unknown Phone Unavailable Care Team Providers Care Roll Press Operator Name Role Phone Schwartz, D Bouchra CD MANUFACTURING SUPERVISOR-C Unavailable Unavailable Schwartz, D Bouchra CD MANUFACTURING SUPERVISOR-C Unavailable Unavailable Schwartz, D Bouchra CD MANUFACTURING SUPERVISOR-C Unavailable Unavailable Schwartz, D Bouchra CD MANUFACTURING SUPERVISOR-C Unavailable Unavailable Schwartz, D Bouchra CD MANUFACTURING SUPERVISOR-C Unavailable Unavailable Schwartz, D Bouchra CD MANUFACTURING SUPERVISOR-C Unavailable Unavailable Schwartz, D Bouchra CD MANUFACTURING SUPERVISOR-C Unavailable Unavailable AVEL, L MATTIE PA Unavailable Unavailable AVEL, L MATTIE PA Unavailable Unavailable AVEL, L MATTIE PA Unavailable Unavailable AVEL, L MATTIE PA Unavailable Unavailable AVEL, L MATTIE PA Unavailable Unavailable AVEL, L MATTIE PA Unavailable Unavailable AVEL, L MATTIE PA Unavailable Unavailable AVEL, L MATTIE PA Unavailable Unavailable AVEL, L MATTIE PA Unavailable Unavailable AVEL, L MATTIE PA Unavailable Unavailable AVEL, L MATTIE PA Unavailable Unavailable AVEL, L MATTIE PA Unavailable Unavailable AVEL, L MATTIE PA Unavailable Unavailable AVEL, L MATTIE PA Unavailable Unavailable AVEL, L MATTIE PA Unavailable Unavailable AVEL, L MATTIE PA Unavailable Unavailable DEB, A CL DO Unavailable Unavailable DEB, A CL DO Unavailable Unavailable DEB, A CL DO Unavailable Unavailable DEB, A CL DO Unavailable Unavailable DEB, A CL DO Unavailable Unavailable DEB, A CL DO Unavailable Unavailable DEB, A CL DO Unavailable Unavailable DEB, A CL DO Unavailable Unavailable DEB, A CL DO Unavailable Unavailable DEB, A CL DO Unavailable Unavailable DEB, A CL DO Unavailable Unavailable DBE, A CL DO Unavailable Unavailable DEB, A CL DO Unavailable Unavailable DEB, A CL DO Unavailable Unavailable DEB, A CL DO Unavailable Unavailable DEB, A CL DO Unavailable Unavailable DEB, A CL DO Unavailable Unavailable DEB, A CL DO Unavailable Unavailable DEB, A CL DO Unavailable Unavailable DEB, A CL DO Unavailable Unavailable DEB, A CL DO Unavailable Unavailable DEB, A CL DO Unavailable Unavailable DEB, A CL DO Unavailable Unavailable Re-disclosure Warning The records that you are about to access may contain information from federally-assisted alcohol or drug abuse programs. If such information is present, then the following federally mandated warning applies: This information has been disclosed to you from records protected by federal confidentiality rules (42 CFR part 2). The federal rules prohibit you from making any further disclosure of this information unless further disclosure is expressly permitted by the written consent of the person to whom it pertains or as otherwise permitted by 42 CFR part 2. A general authorization for the release of medical or other information is NOT sufficient for this purpose. The Federal rules restrict any use of the information to criminally investigate or prosecute any alcohol or drug abuse patient.The records that you are about to access may contain highly sensitive health information, the redisclosure of which is protected by Article 27-F of the [facility] Public Health law. If you continue you may have access to information: Regarding HIV / AIDS; Provided by facilities licensed or operated by the [facility] Office of Mental Health; or Provided by the [facility] Office for People With Developmental Disabilities. If such information is present, then the following [facility] mandated warning applies: This information has been disclosed to you from confidential records which are protected by state law. State law prohibits you from making any further disclosure of this information without the specific written consent of the person to whom it pertains, or as otherwise permitted by law. Any unauthorized further disclosure in violation of state law may result in a fine or care home sentence or both. A general authorization for the release of medical or other information is NOT sufficient authorization for further disc losure. Family History Family Member Name Family Member Gender Family Member Status Date o f Status Description Data Source(s) Unknown Unknown Problem MEDENT ([facility]) Unknown Unknown Problem MEDENT ([facility]) Unknown Female Problem MEDENT ([facility]) Encounters Encounter Providers Location Date Indications Data Source(s ) ( GYNANN) [facility] Yearly [employer]LL[employer] PERSON Exam [address] [place] [address] 08/20/2021 12:00:00 AM EDT eCW1 ([facility]) Outpatient Attender: Bouchra Schwartz CD MANUFACTURING SUPERVISOR-C Main Office 08/04/2021 08:00:00 AM EDT MEDENT ([facility]) Outpatient Attender: MATTIE CORDERO Main Office 07/22/2021 0 8:15:00 AM EDT MEDENT ([facility]) Outpatient [address] [facility], [facility] [address] 06/23/2021 12:00:00 AM EDT eCW1 ([facility]) <td ID="encounterTypeDescriptionID1">VIS UAL FIELD 24-2</td><td></td><td>Aleksey Cruz MD [facility]</td><td>06/13/2021</td><td>7:47AM</td><td>8:13AM</td><td></td>Outpatient Aleksey Cruz MD [facility] 06/13/2021 07:47:00 AM EDT - 06/13/2021 08:13:00 AM EDT JONY (Aleksey Elias MD [facility]) <td ID="encounterTypeDescriptionID0">EVERT TING - VISUAL FIELD & OCT</td><td>Cl Machado DO</td><td>Aleksey Cruz MD [facility]</td><td>06/13/2021</td><td>7:47AM</td><td>8:13AM</td><td><content ID="encounterDiagnosisID0-0">Glaucoma Open-angle Primary</content></td>Outpatient Attender: CL Alcala MD [facility] 06/13/2021 07:47:00 AM EDT - 06/13/2021 08:13:00 AM ED T Glaucoma Open- angle Primary JONY (Aleksey Elias MD [facility]) Glaucoma Open-angle Primary Unknown [address] [facility] [address] 06/05/2021 12:00:00 AM EDT eCW1 ([facility]) <td ID="encounterTypeDescriptionID2">1 Y ear Follow-Up</td><td>Cl Machado DO</td><td>Aleksey Cruz MD [facility]</td><td>05/15/2021</td><td>8:40AM</td><td>9:51AM</td><td><content ID="encounterDiagnosisID2-0">Glaucoma Open-angle Primary</content>, <content ID="encounterDiagnosisID2-1">Pseudophakia</content>, <content ID="encounterDiagnosisID2-2">Chorioretinal Scar</content>, <content ID="encounterDiagnosisID2-3">Vitreous Disorders Degeneration</content></td>Outpatient Attender: CL Alcala MD [facility] 05/15/2021 08:40:00 AM EDT - 05/15/2021 09:51:00 AM ED T PseudophakiaPseudophakiaVitreous Disorders DegenerationChorioretinal ScarGlaucoma Open-angle PrimaryVitreous Disorders DegenerationChorioretinal ScarGlaucoma Open-angle Primary JONY (Aleksey Elias MD [facility]) 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 COVID-19 dose #2 given elsewhere Unspecified 01/04/2021 12:0 6:00 PM EST completed eCW1 ([facility]) COVID-19 dose #2 given elsewhere Unspecified 01/04/2021 12:0 6:00 PM EST completed eCW1 ([facility]) COVID-19 VACCINE Pfizer 01/04/2021 12:00:00 AM EST completed [facility] Vaccine Series Complete: YESThis Data wa s Submitted to [facility]. COVID-19 VACCINE, MRNA, [id number], LNP-S (PFIZER)/PF 01/04/20 21 12:00:00 AM EST completed [facility] COVID-19 dose #1 given elsewhere Unspecified 12/14/2020 12:0 5:00 PM EST completed eCW1 ([facility]) COVID-19 dose #1 given elsewhere Unspecified 12/14/2020 12:0 5:00 PM EST completed eCW1 ([facility]) COVID-19 VACCINE Pfizer 12/14/2020 12:00:00 AM EST completed [facility] Vaccine Series Complete: NOThis Data was Submitted to [facility]. COVID-19 VACCINE, MRNA, [id number], LNP-S (PFIZER)/PF 12/14/19 12:00:00 AM EST completed [facility] Medications Medication Brand Name Start Date Product Form Dose Route Admi nistrative Instructions Pharmacy Instructions Status Indications Reaction Description Data Source(s) Cholecalciferol 2000 UNT Oral Capsule Vitamin D3 07/21/2021 12:00:00 AM EDT ORAL active MEDENT ([facility] Estradiol 0.5 MG Oral Tablet Estradiol 01/16/2021 12:00:00 AM EST ORAL active MEDENT ([facility]) medroxyprogesterone acetate 2.5 MG Oral Tablet Medroxyproges terone Acetate 01/16/2021 12:00:00 AM EST ORAL active MEDENT ([facility]) pitavastatin 2 MG Oral Tablet [Livalo] Livalo 2 MG Ora l Tablet Livalo 2 MG Oral Tablet 08/30/2019 12:00:00 AM EDT 1 aborted pitavastatin calcium 2 MG Oral Tablet [Livalo] JONY (Aleksey Elias MD [facility]) carvedilol 3.125 MG Oral Tablet Carvedilol 3.125 MG Or al Tablet Carvedilol 3.125 MG Oral Tablet 08/30/2019 12:00:00 AM EDT 1 ab orted carvedilol 3.125 MG Oral Tablet JONY (Aleksey Elias MD [facility]) Estradiol 0.1 MG/ML Vaginal Cream [Estrace] Estrace 0. 1 MG/GM Vaginal Cream Estrace 0.1 MG/GM Vaginal Cream 08/30/2019 12:00:00 AM EDT 1 aborted estradiol 0.1 MG/ML Vaginal Cream [Estrace] JONY ( Aleksey Elias MD [facility]) Insurance Providers Payer name Policy type / Coverage type Policy ID Covered alliance party ID Covered alliance party's relationship to ram Policy Ram Plan Information Medicare (Part B) Medicare Primary [id number] Self [id number] Medicare (Part B) Medicare Primary [id number] Self [id number] Medicare (Part B) Medicare Primary [id number] Self [id number] Medicare (Part B) Medicare Primary [id number] .[id number] Self Medicare (Part B) Medicare Primary [id number] [id number] Self [id number] A MEDICARE 4 [id number] 1 [id number] A Medicare (Part B) Medicare Primary [id number] Self [id number] Medicare (Part B) Medicare Primary [id number] [id number] Self [id number] Medicare (Part B) Medicare Primary [id number] [id number] Self [id number] Medicare Medicare Primary [id number] Self Medicare (Part B) Medicare Primary [id number] Self [id number] [place] [facility] Medigap Part B [id number] Self Medicare [place] Primary [id number] Self [place] Plan-[employer] Medigap Part B [id number] Self [id number] [place] [employer] Medigap Part B [id number] 2.16.840.1.365322.3.227.99.572.6190.0 Self [id number] [place] [employer] Medigap Part B [id number] 2.16.840.1.302171.3.227.99.572.6190.0 Self [id number] [place] [employer] Medigap Part B [id number] 2.16.840.1.343782.3.227.99.572.6190.0 Self [id number] [place] [employer] Medigap Part B [id number] Self [place] [employer] Medigap Part B [id number] Self [id number] [place] [employer] Medigap Part B [id number] 2.16.840.1.968052.3.227.99.572.6190.0 Self [id number] [place] [employer] Medigap Part B [id number] Self [id number] [facility] Medigap Part B [id number] 2.16.840.1.386898.3.227.99.572.6190.0 Self [id number] [facility] Part B [id number] 2.16.840.1.835475.3.227.99.991.63220.0 Self [id number] [facility] Medigap Part B [id number] 2.16840.1.014802.3.227.99.991.52827.0 Self [id number] Medicare [place] Medicare Primary [id number] 2.16.840.1.120538.3.227.99.991.49019.0 Self [id number] [facility] Part B [id number] 2.0.1.356402.3.227.99.991.92684.0 Self [id number] Medicare [place] Medicare Primary [id number] 2.16.840.1.135239.3.227.99.991.07133.0 Self [id number] Medicare [place] Medicare Primary [id number] 2.16840.1.988275.3.227.99.991.73682.0 Self [id number] [facility] Part B [id number] 2.16840.1.180454.3.227.99.991.81455.0 Self [id number] Medicare [place] Medicare Primary [id number] 2.16.840.1.709103.3.227.99.991.39472.0 Self 1 [id number] Medicare [place] Medicare Primary [id number] 2.16840.1.529618.3.227.99.991.35025.0 Self [id number] [facility] Part B [id number] 2.16840.1.583744.3.227.99.991.65187.0 Self [id number] MEDICARE [id number] SP [id number] A [facility] [place] Medigap Part B [id number] 2..840.1.789[id number] Self [id number] Medicare Natl Gov't Servi Medicare Primary [id number] 2..840.1.456[id number] Self [id number] MEDICARE [id number] SP [id number] MEDICARE [id number] SP [id number] A [place] Plan-[facility] Medigap Part B [id number] Self [facility] MUTUAL [id number] SP [id number] [facility] O [id number] S [id number] [facility] MUTUAL [id number] SP [id number] [facility] O [id number] S [id number] MEDICARE C [id number] S [id number] A [facility] O [id number] S [id number] SELFPAY 5 UNAVAILABLE 1 UNAVAILA BLE BLUE CROSS CNY 1 [id number] YL [id number] BCBS [place] DIV [id number] UNITED HEALTHCARE [id number] SP [id number] BCBS [place] DIV UNAVAILABLE UNAVAILABLE UNITED HEALTHCARE [id number] SP [id number] BCBS [place] DIV [id number] SP [id number] [facility] Employees [place] [facility] Other 0 [id number] Self 0 Medicare Part [place] of [place] Other 0 [id number] Self 0 [facility] [employer] [facility] Other 0 [id number] Self 0 Medicare [place] Other 0 [id number] Self 0 [facility] [employer] Other 0 [id number] Self 0 Medicare Part [place] Other 0 [id number] Self 0 ANSI-Commercial [id number] ANSI-Commercial [id number] ANSI-Medicare Part B [id number] [facility] Part B [id number] Self [id number] ANSI-Commercial [id number] ANSI-Medicare Part B [id number] ANSI-Commercial [id number] ANSI-Commercial [id number] ANSI-Commercial [id number] ANSI-Medicare Part B [id number] ANSI-Medicare Part B [id number] ANSI-Commercial [id number] ANSI-Commercial [id number] ANSI-Medicare Part B [id number] ANSI-Commercial [id number] ANSI-Commercial [id number] BS [facility] [id number] [facility] O [id number] S [id number] MEDICARE C [id number] S [id number] MEDICARE [id number] SP [id number] J35 Problems, Conditions, and Diagnoses Code Display Name Description Problem Type Effective Dates Data Source(s) N95.2 [id number] Vaginal atrophy Problem 08/20/2021 12:00:00 AM EDT eCW1 ([facility]) Surgeries/Procedures Procedure Description Date Indications Data Source(s) OFFICE OUTPATIENT VISIT 25 MINUTES 08/04/2021 12:00:00 AM EDT MEDENT ([facility]) ECG ROUTINE ECG W/LEAST 12 LDS W/I&R 07/22/2021 12:00: 00 AM EDT MEDENT ([facility]) OFFICE OUTPATIENT VISIT 25 MINUTES 07/22/2021 12:00:00 AM EDT MEDENT ([facility]) ECG ROUTINE ECG W/LEAST 12 LDS W/I&R 01/17/2021 12:00: 00 AM EST MEDENT ([facility]) OFFICE OUTPATIENT VISIT 25 MINUTES 01/17/2021 12:00:00 AM EST MEDENT ([facility]) Results ID Date Data Source [id number] 06/16/2021 08:56:00 AM EDT [facility] Name Value Range Interpretation Code Description Data Nayeli rce(s) Supporting Document(s) Hemoglobin A1c/Hemoglobin.total in Blood 5.5 MEDENT ([facility]) ID Date Data Source [id number] 06/16/2021 08:56:00 AM EDT MEDENT ([facility] [place]) Name Value Range Interpretation Code Description Data Nayeli rce(s) Supporting Document(s) Thyroid Stimulating Hormone 2.510 ME DENT ([facility]) ID Date Data Source [id number] 06/16/2021 08:56:00 AM EDT [facility] Name Value Range Interpretation Code Description Data Nayeli rce(s) Supporting Document(s) Triglycerides 132 MEDENT ([facility]) HDL 48 [facility] Cholesterol 148 MEDENT ([facility]) Cholesterol in LDL [Mass/volume] in Serum or Plasma by calculation 74 MEDENT ([facility]) Chol/HDL Ratio 3.083 MEDENT ([facility]) ID Date Data Source [id number] 06/16/2021 08:56:00 AM EDT [facility]) Name Value Range Interpretation Code Description Data Nayeli rce(s) Supporting Document(s) Albumin [Mass/volume] in Serum or Plasma 3.7 MEDENT ([facility]) Calcium [Mass/volume] in Serum or Plasma 9.3 MEDENT ([facility]) Alanine aminotransferase [Enzymatic activity/volume] in Serum or Pl asma 16 MEDENT ([facility]) Chloride [Moles/volume] in Serum or Plasma 110 MEDENT ([facility]) Carbon dioxide, total [Moles/volume] in Serum or Plasma 29 MEDENT ([facility]) Potassium [Moles/volume] in Serum or Plasma 4.0 MEDENT ([facility]) Alkaline phosphatase [Enzymatic activity/volume] in Serum or Plasma 6 8 MEDENT ([facility]) Protein [Mass/volume] in Serum or Plasma 6.7 MEDENT ([facility]) Sodium 144 MEDENT ([facility] Aspartate aminotransferase [Enzymatic activity/volume] in Serum or Plasma 12 MEDENT ([facility]) Glucose 108 83-110 MEDENT ([facility] Urea nitrogen [Mass/volume] in Serum or Plasma 17 MEDENT ([facility]) Creatinine For GFR 0.65 MEDENT ([facility]) ID Date Data Source [id number] 06/16/2021 08:56:00 AM EDT MEDENT ([facility]) Name Value Range Interpretation Code Description Data Nyaeli rce(s) Supporting Document(s) White Blood Count 7.4 5.0-10.0 MEDENT ([facility]) Red Blood Count 4.91 4.00-5.40 MEDENT ([facility]) Platelets 251 172-450 MEDENT ([facility]) Hemoglobin 14.6 MEDENT ([facility]) Hematocrit 46.2 MEDENT ([facility]) Procedure Social History Code Duration Value Status Description Data Source(s ) Smoking 07/22/2021 12:00:00 AM EDT Patient is a former smoker completed Patient is a former smoker MEDENT ([facility]) Smoking 05/15/2021 09:53:09 AM EDT Ex-smoker (finding) [facility] ed Ex-smoker (finding) JONY (Aleksey Elias MD [facility]) Vital Signs ID Date Data Source UNK Name Value Range Interpretation Code Description Data Source(s) Body weight 146 [lb_av] 146 [lb_av] eCW1 ([facility]) Body height 68 [in_i] 68 [in_i] eCW1 ([facility]) Body mass index (BMI) [Ratio] 22.2 kg/m2 22.2 k g/m2 eCW1 ([facility]) Systolic blood pressure 142 mm[Hg] 142 mm[Hg] e CW1 ([facility]) Diastolic blood pressure 80 mm[Hg] 80 mm[Hg] eCW1 ([facility]) Systolic blood pressure 132 mm[Hg] 132 mm[Hg] M EDENT ([facility]) Diastolic blood pressure 82 mm[Hg] 82 mm[Hg] MEDENT ([facility]) Heart rate 74 /min 74 /min MEDENT ([facility]) Respiratory rate 16 /min 16 /min MEDENT ( [facility]) Body weight 145.00 [lb_av] 145.00 [lb_av] MEDEN T ([facility]) Body height 69 [in_i] 69 [in_i] MEDENT ([facility]) 5'9" Body mass index (BMI) [Ratio] 21.4 kg/m2 21.4 k g/m2 MEDENT ([facility]) Heart rate 91 /min 91 /min MEDENT ([facility]) Systolic blood pressure--sitting 126 mm[Hg] 126 mm[Hg] MEDENT ([facility]) Ra, medium cuff Diastolic blood pressure--sitting 70 mm[Hg] 70 mm[Hg] MEDENT ([facility]) Ra, medium cuff Body weight 147.0 [lb_av] 147.0 [lb_av] eCW1 ([facility]) Body height [in_i] eCW1 ([facility]) Body mass index (BMI) [Ratio] 22.19 kg/m2 22.19 kg/m2 eCW1 ([facility]) Heart rate 83 /min 83 /min eCW1 ([facility]) Respiratory rate 18 /min 18 /min eCW1 ([facility] [place]) Body temperature 98.1 [degF] 98.1 [degF] eCW1 ( [facility]) Systolic blood pressure 118 mm[Hg] 118 mm[Hg] e CW1 ([facility]) Diastolic blood pressure 60 mm[Hg] 60 mm[Hg] eCW1 ([facility]) Body weight 146.00 [lb_av] 146.00 [lb_av] MEDEN T ([facility]) Body height 69 [in_i] 69 [in_i] MEDENT ([facility]) 5'9" Body mass index (BMI) [Ratio] 21.6 kg/m2 21.6 k g/m2 MEDPAXTON ([facility]) Heart rate 94 /min 94 /min MEDPAXTON ([facility]) Systolic blood pressure--sitting 124 mm[Hg] 124 mm[Hg] MEDPAXTON ([facility]) Ra, medium cuff Diastolic blood pressure--sitting 80 mm[Hg] 80 mm[Hg] MEDENT ([facility]) Ra, medium cuff
--- OUTSIDE RECORDS SUMMARY | 2021-10-03 11:34 | CCD | Continuity of Care Document ---
Author Author Linda VALLECILLO Organization Unknown Address [address] [place] [address] [place] [address] Phone [phone] Care Team Providers Care Loan Services Professional Name Role Phone Hero Rizzo MD AUTM [phone] Lamberto Torres AUTM [phone] Problems Active Problems Provider Date Coronary arteriosclerosis [...] Index) 21.4 kg/m2 Heart Rate 91 /min BP Systolic Sitting 126 mmHg Ra, medium cuff BP Diastolic Sitting 70 mmHg Ra, medium cuff 01/17/2021 8:28am Weight 146.00 lb Home Weight 144lb Height 69 inches 5'9" BMI (Body Mass Index) 21.6 kg/m2 Heart Rate 94 /min BP Systolic Sitting 124 mmHg Ra, medium cuff BP Diastolic Sitting 80 mmHg Ra, medium cuff Results Test Acquired Date Facility Test Result H/L Range Note CBC without Differential 06/16/2021 [facility] - not inter faced (315)- - White Blood Count 7.4 5.0-10.0 Red Blood Count 4.91 4.00-5.40 Platelets 251 172-450 Hemoglobin 14.6 Hematocrit 46.2 CMP 06/16/2021 [facility] - not interfaced (315)- - Albumin Serum/Plasma 3.7 Alt - SGPT 16 Calcium Ser/Plasma Mass/Vol 9.3 Carbon Dioxide Ser/Plasm 29 Chloride Serum/Plasma 110 Alkaline Phosphatase 68 Potassium 4.0 Protein Total 6.7 Sodium 144 Ast - Sgot 12 BUN - Urea Nitrogen 17 Glucose 108 83-110 Creatinine For GFR 0.65 Lipid Profile/Cardiac Risk Pro 06/16/2021 [facility] - not interfaced (315)- - Triglycerides 132 <150 Cholesterol 148 <200 HDL 48 >40.0 LDL Cholesterol 74 Chol/HDL Ratio 3.083 <5 Laboratory test finding 06/16/2021 [facility] - not interf aced (315)- - Thyroid Stimulating Hormone 2.510 Hemoglobin A1c 06/16/2021 [facility] - not interfaced (315)- - Hemoglobin A1c 5.5 Procedures Date Code Description Status 07/22/2021 46415 Office/Outpatient Established Mo d MDM 30-39 Min Completed 07/22/2021 17027 ECG 12-Lead Completed Medical Devices Description No Information Available Encounters Type Date Location Provider Dx Diagnosis Office Visit 07/22/2021 8:15a Main Office CONSUELO Cooper 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 I25.5 Ischemic cardiomyopathy I11.0 Hypertensive heart disease w ith heart failure E78.2 Mixed hyperlipidemia R94.31 Abnormal electrocardiogram [ ECG] [EKG] Z71.3 Dietary counseling and surve illance Assessments Date Code Description Provider 07/22/2021 I25.10 Atherosclerotic heart disease of [place] coronary artery with CONSUELO Cooper 07/22/2021 I25.5 [...] CONSUELO Cooper* I25.10 Atherosclerotic heart disease of [place] coronary artery with* Recommendations:* Continue aspirin and [...] week and see if side effects yaz If she feels better off Livalo, it may be worthwhile to discontinue medication to help her feel better on a day-to-day basis * R94.31 Abnormal electrocardiogram [ECG] [EKG]* Recommendations:* [...]
--- OUTSIDE RECORDS SUMMARY | 2021-10-03 11:34 | CCD ---
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 Neurontin had helped some, but caused lightheadedness . Vitamin B12 and folic acid levels were normal most recently in December 2018. She tried Metanx, and this was of no benefit. She tried nortriptyline at bedtime which was tolerated. As of 06/2013 she had been on Lyrica with benefit, and then in the interim it was less tolerated and less beneficial. Cymbalta per neurologist was not tolerated (one dosecaused diarrhea and nausea; neurologist did electrodiagnostics and results N/A. Her vitamin B6 level was high and I don't know the impact of that but she stopped her supplement and a repeat B6 level was normal as of late June 2014. No longer sees neurologist. Symptoms were progressing as of January 2017 and tramadol was initiated for lack of response or tolerance to other medication. This was also ineffective. Problem Coronary artery disease I25.10 Active confirmed [id number] Had AK in 1997. 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 Last LVEF 47 % in May 2018. Has no angina. No CHF symptoms. On Aspirin, intermittently on a statin, and she is on a beta-ale; she was started on an PERRY inhibitor in Summer 2017, developed a cough and now she is on an ARB. I wondered if her beta ale was contributing to her feeling of cold feet and she did stop the very low dose that she was taking. Her cardiology provider encouraged her to restart it. She was taking metoprolol instead of atenolol but was switched to carvedilol in May 2019; this was stopped in 11/2019 by her surgical garment inspector due to lightheadedness. Problem Elevated fasting glucose R73.01 Active confirmed [id number] Her fasting blood glucose has been elevated in the past at this point is recently controlled as of June 2021, with a hemoglobin A1c of 5.4%. 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 She does have evidence for rotator cuff tear on the right and had a right shoulder injection with some relief, by her orthopedist, several times in the past. Has offered a reverse total shoulder replacement. She is deferring on that for now. In 2016 she was treated for greater trochanteric bursiitis bilaterally, and right knee pain. She tried topical Voltaren gel as of August 2017 for her foot and hand pain but it was ineffective. Most recently, as of July 2019, she had right sciatica versus iliotibial band syndrome, and stretching exercises are recommended. She sees orthopedics as needed. 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 She stopped her hormone replacement therapy probably in late 2017 but then restarted it due to hot flashes. Problem Elevated cholesterol E78.00 Active confirmed 790090680 Her lipid control had been reasonable on Lipitor and fish oil, in the past. She had since had manipulations in her statin therapy due to neuropathy (??from Lipitor); she previously had fatigue on Crestor. CoQ10 was recommended but she felt it caused fatigue. Returned to Lipitor therapy but stopped her statin therapy entirely as of 07/20/2017. She became concerned about glucose elevations on Lipitor and was started on Livalo as of August 2017, with reasonable lipid control and a normal normal glucose subsequently, most recently assessed in June 2021. She has in the past also been trialed on pravastatin but she feels it contributed to her neuropathy and I then placed her back on low-dose Crestor as of August 2018, with an LDL of less than 100 in December and July 2019; she is now back on Livalo. Problem Vaginal atrophy N95.2 Active confirmed 2971 06120 Problem Osteopenia M85.80 Active confirmed 520805909 Osteopenia by DEXA 2002. 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 I have no report, and she stopped Actonel in 2008 due to jaw pain. Another DEXA done in 07/2013 revealed osteopenia with worst t-score of -1.7 in forearm, -1.1 in spine; hips not done due to prior surgeries. 59-folkdjj-Axnsjny D level 52 in 11/2009. On ERT, low dose in the past but she stopped that in 2017, but then restarted it due to hot flashes. 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 Had partial thyroidectomy for benign nodular disease in 1981. Problem Do not resuscitate Z66 Active confirmed 3 52503249 As per MOLST form completed 08/18/2017. ALLERGIES Allergen (clinical drug ingredient) Drug/Non Drug Allergy do cumented on EMR Reaction Allergy Type Onset Date Status pregabalin Lyrica(ND Code:[address]-33) lips numb/flaky,b lurred vision, tired Drug Allergy Active meperidine Demerol(NDC Code:[address]-01) nausea, vomiting Drug Artemio rgy Active nortriptyline Nortriptyline HCl(NDC Code:[address]-00) Nausea /Vomiting Drug Allergy Active Ticlid rash, fever Drug Allergy Active Sulfa (for allergy use only) Rash Non Drug Allergy Active risedronate Actonel([facility] Code:[address]-75) jaw pain Drug Allergy Active Darvocet-N 100 nausea Drug Allergy Active pantoprazole Protonix(ND Code:[address]-45) trouble swallowing Drug Allergy Active Penicillin (For Allergies Use Only) nausea Drug Allerg y Active desloratadine Clarinex(NDC Code:[address]-72) heart palpitations D rug Allergy Active oxycodone OxyContin(ND Code:[address]-71) vomiting Drug Allergy Active duloxetine Cymbalta(ILC Code:[address]-72) diarrhea, nausea Drug All ergy Active naproxen Naproxen([facility] Code:[address]-71) lips numb and flaky Drug Allergy Active gabapentin Gabapentin([facility] Code:[address]-85) Dizzy Drug Allergy Active ENCOUNTERS from 1935 to 2021-08-22 Encounter Location Date Provider Diagnosis [facility] [phone] [place] [address] Aug, Emilee Campbellc Routine gynecologica l examination Z01.419 ; H/O long-term (current) use of postmenopausal hormone replacement therapy Z79.890 and Vaginal atrophy N95.2 IMMUNIZATIONS Vaccine Route Administration Date Status COVID-19 dose #1 given elsewhere Unspecified Unknown Dec 14, 2020 Administered COVID-19 dose #2 given elsewhere Unspecified Unknown Jan 04, 2021 Administered Influenza 18 yrs & older Flublok IM Intramuscular Sep 05, 2018 Administered Zoster 50mcg/0.5mL Shingrix Unknown Sep 22, 2018 Admi nistered Zoster 50mcg/0.5mL Shingrix Unknown Nov 30, 2018 Admi nistered Influenza Pharmacy Given Unknown Jul 25, 2020 Adminis tered Influenza 6mo & up Fluzone Unknown Aug 09, 2014 Admin istered Influenza (High Dose 65 & up) IM Intramuscular Aug 18, 2017 A dministered Influenza (High Dose 65 & up) IM Intramuscular Aug 17, 2016 A dministered Influenza (High Dose 65 & up) IM Intramuscular Aug 05, 2015 A dministered Zoster 0.65mL Zostavax Unknown Nov 01, 2008 Administe red Pneumococcal Adult 0.5mL Pneumovax Unknown Dec 14 02 Administered TDAP Unknown Nov 18, 2009 Administered Pneumococcal 0.5mL Prevnar 13 IM Intramuscular February 12, 2016 A dministered Influenza 6mo & up Fluzone Unknown Aug 03, 2019 Admin istered SOCIAL HISTORY Sex Assigned At : Social History Observation Description Sex Assigned At Unknown Education: Question Answer Notes Level of Education: Finished High School Audit Question Answer Notes Total Score: 0 Interpretation: Alcohol Education Language: Question Answer Notes Languages spoken: Lao Anabaptist: Question Answer Notes Anabaptist 08 Sikh Sexual Hx: Question Answer Notes Had sex in the last 12 months (vaginal, oral, or anal)? No Have you ever had an STD? No Drug and Alcohol Question Answer Notes Total Score: 0 Interpretation: No problems reported Alcohol Screening: Question Answer Notes Did you have a drink containing alcohol in the past year? No Points 0 Interpretation Negative BMI Care Goal Follow-Up Question Answer Notes Above Normal BMI Follow-Up Giving encouragement to exercise REASON FOR REFERRAL No Information VITAL SIGNS Weight 146 lbs Aug, Height 68 in Aug, BMI 22.2 kg/m2 Aug, Blood pressure systolic 142 mm Hg Aug, Blood pressure diastolic 80 mm Hg Aug, MEDICATIONS Medication SIG (Take, Route, Frequency, Duration) Notes Start Da te End Date Status Fish Oil 1000 MG 1 tablet Orally Daily otc-self Active Livalo 2 MG 1 tablet Orally Once a day for 30 day(s) Not-Taking Vitamin D 2000 UNIT 1 tablet Orally Once a day Active Nitroglycerin 0.4 MG 1 tab Sublingual every 5 min utes times 3 as needed for chest pain for 30 days Active Tylenol Extra Strength 500 mg 2 tablets as needed Orally bid Active Magnesium 500 MG 1 tablet Orally once a day otc self Active Voltaren 1 % as directed Transdermal 1-2 grams to affected joints every 4 hours as needed for 90 days Aug, Not-Taking Folic Acid 400 MCG 1 tablet Orally once a day otc-self Active Cranberry 500 MG 1 tablet with meals Orally once a day for 30 day(s ) otc-self Active Sleep Aid 50 mg 1 cap(s) p.o. Once a day for 30 day(s) otc self Active Probiotic Colon Support - 1 tab Orally Daily Active Stool Softener 100 MG 1 capsule as needed Orally four times daily Active Losartan Potassium 25 mg 1 tablet Orally Once a day Active May Have tumeric and curcumin daily Active Calcium 600 + D 600-400 MG-UNIT 2 tablet Orally Once a day Active Vitamin B-12 500 MCG 1 tablet Orally Once a day otc-self Active Vitamin C 1000 MG 1 tablet Orally once a day otc-self Active Centrum otc 1 tablet Orally once a day Active Estrace 0.1 MG/GM 1/2 gram externally vulva bid a.m. and p.m. for 9 0 day(s) Active Aspirin 81 MG 1 tablet Orally Once a day Active PROCEDURES No Information RESULTS No Results REASON FOR VISIT annual/mammo MEDICAL (GENERAL) HISTORY Type Description Date Medical History Elevated cholesterol Medical History Elevated fasting glucose Medical History Coronary artery disease Medical History Sensory peripheral neuropathy Medical History Osteopenia Medical History Osteoarthritis Medical History H/O thyroidectomy Medical History Do not resuscitate Surgical History laminectomy [facility] 1971 Surgical History subtotal thyroidectomy [facility] 1981 Surgical History Retina Detachment-[facility] [place] 1987 Surgical History cyst on epiglottis removed-[facility] 1981 Surgical History coronary artery stents/impla nted- , [facility] 1997 Surgical History cataract-lens implants [facility] 2002 Surgical History colonoscopy--refuses more 2004 Surgical History fractured left hip repair - [facility] 04/2005 Surgical History [facility] Surgical History right hip replacement-,[facility] 05/04 07 Surgical History Right shoulder sprain-[facility] one inj 06/21/12, 01/04/13, 07/10/13, 01/22/14, 10/17/14, 06/28/15 02/04/2012 Surgical History Cologuard negative in 02/2017 Hospitalization History for above reason Goals Section No Information Health Concerns No Information MEDICAL EQUIPMENT No Information MENTAL STATUS No Information FUNCTIONAL STATUS No Information ASSESSMENTS Encounter Date Diagnosis Assessment Notes Treatment Notes Treatm ent Clinical Notes Aug, Routine gynecological examination (ICD-10 - Z01. 419) D/c mammograms. No longer indicated. Pt agrees with plan of care. Aug, H/O long-term (current) use of postmenopausal hormone replacement therapy (ICD-10 - Z79.890) Long discussion with pt regarding need to d/c HRT. Pt agrees with plan of care, there are no guidelines to support her continuing HRT at this point. Aug, Vaginal atrophy (ICD-10 - N95.2) PLAN OF TREATMENT Medication Medication Name Sig Start Date Stop Date Estrace 0.1 MG/GM 1/2 gram externally vulva bid a.m. and p.m. fo r 90 day(s) Treatment Notes Assessment Notes Clinical Notes Routine gynecological examination D/c ma mmograms. No longer indicated. Pt agrees with plan of care. H/O long-term (current) use of postmenopausal hormone replac ement therapy Long discussion with pt regarding need to d/c HRT. Pt agrees with plan of care, there are no guidelines to support her continuing HRT at this point. Next Appt Details prn Reason:Prn Provider Name:Hero Rizzo, 2021-12-22 08 :30:00 AM, [address] [facility], , [place], [address], Follow Up:prnPrn Insurance Providers Payer Name Payer Address Payer Phone Insured Name Patient Relati onship to Insured Coverage Start Date Coverage End Date MEDICARE Part A and B [address] [facility] [phone] CINDY JARVIS [facility] [address] [facility] [id number] CINDY VIEIRA
[2021-10-03 11:47] LABS: CK-MB VALUE MASS 4.1 NG/ML (<3.6); MB/CK RELATIVE INDEX 6.41 (< OR =4); TROPONIN I 0.45 NG/ML (< 0.10)
[2021-10-03 11:55] LABS: ALBUMIN 3.3 GM/DL (3.2-5.2); ALT/SGPT 16 U/L (12-78); BILIRUBIN,DIRECT < 0.1 MG/DL (0.0-0.2); BILIRUBIN,TOTAL 0.4 MG/DL (0.2-1.0); BLOOD UREA NITROGEN 15 MG/DL (7-18); CALCIUM LEVEL 9.6 MG/DL (8.8-10.2); CARBON DIOXIDE LEVEL 28 MEQ/L (21-32); CHLORIDE LEVEL 108 MEQ/L (98-107); CREATININE FOR GFR 0.82 MG/DL (0.55-1.30); GLOMERULAR FILTRATION RATE > 60.0 (>32); GLUCOSE, FASTING 156 MG/DL (70-100); LIPASE 101 U/L (73-393); NT-PRO BNP 226 PG/ML (<450); POTASSIUM SERUM 4.2 MEQ/L (3.5-5.1); SODIUM LEVEL 142 MEQ/L (136-145); TOTAL PROTEIN 6.4 GM/DL (6.4-8.2)
[2021-10-03] MEDS ORDERED: HEPARIN DRIP 25,000 UNITS in IV 1 EA IV SCH (12:55)
[2021-10-03] MEDS ORDERED: HEPARIN SOD (PORCINE) 5000UNITS/ML 1ML VIAL/SYRINGE IV ONE (12:55)
[2021-10-03 13:14] LABS: RSV AMPLIFICATION NEGATIVE (NEGATIVE)
[2021-10-03 14:12] VITALS: BP 194/98
--- NOTE | 2021-10-04 08:05 | ECGEPIP ---
[facility] - ED Test Date: 2021-10-03 Pat Name: CINDY JARVIS Department: Room: - Gender: Female Advisory Internship: : 1935 Requested By: Jimmy Fried Order Number: [id number] Reading MD: Anya Pink Measurements Intervals [place] Rate: 83 P: 63 GA: 168 QRS: -46 QRSD: 126 T: 98 QT: 370 QTc: 434 Interpretive Statements Normal sinus rhythm Left axis deviation Nonspecific intraventricular block Minimal voltage criteria for LVH, may be normal variant ( Edwin product ) Cannot rule out Septal infarct , age undetermined T wave abnormality, consider ischemia increased rate 10/23/15 Electronically Signed on 10-04-2021 8:04:47 EST by Anya Pink
--- NOTE | 2021-10-04 08:06 | ECGEPIP ---
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
== END 2021-10-03 14:20 | disposition short-term general hospital (02) ==
LOC: EDBD 10:23 → M ED 10:23
DX: I21.4 Non-ST elevation (NSTEMI) myocardial infarction (principal); I45.4 Nonspecific intraventricular block; Z95.5 Presence of coronary angioplasty implant and graft; I25.2 Old myocardial infarction; E78.5 Hyperlipidemia, unspecified; Z88.0 Allergy status to penicillin; Z88.1 Allergy status to other antibiotic agents; Z88.2 Allergy status to sulfonamides; Z88.8 Allergy status to other drugs, medicaments and biological substances; Z88.5 Allergy status to narcotic agent; Z79.82 Long term (current) use of aspirin; Z79.899 Other long term (current) drug therapy
CPT/HCPCS: 71045; 80048; 80076; 82550; 82553; 83690; 83880; 84484; 85025; 85610; 85730; 87631; 93005; 93041; 94760; 96365; 96375; 99285; J1644

== ENCOUNTER → 2022-01-08 | Outpatient (CLI) | payer MEDICARE, BC, OTHER ==
[~2022-01-08] MED LIST: DOCU-153 PO; ECOT81TA5 PO; LOSA25TA13 PO
[2022-01-08 11:19] LABS: ALBUMIN 3.6 GM/DL (3.2-5.2); ALT/SGPT 14 U/L (12-78); BILIRUBIN,TOTAL 0.7 MG/DL (0.2-1.0); BLOOD UREA NITROGEN 18 MG/DL (7-18); CALCIUM LEVEL 9.7 MG/DL (8.8-10.2); CARBON DIOXIDE LEVEL 29 MEQ/L (21-32); CHLORIDE LEVEL 108 MEQ/L (98-107); CHOLESTEROL LEVEL 160 MG/DL (<200); CHOLESTEROL RISK RATIO 3.076 (<5); CREATININE FOR GFR 0.74 MG/DL (0.55-1.30); GLOMERULAR FILTRATION RATE > 60.0 (>32); GLUCOSE, FASTING 98 MG/DL (70-100); HDL CHOLESTEROL 52 MG/DL (>40); LDL CHOLESTEROL 86 MG/DL (<100); MAGNESIUM LEVEL 2.4 MG/DL (1.8-2.4); NON-HDL-C 108 MG/DL; POTASSIUM SERUM 4.1 MEQ/L (3.5-5.1); SODIUM LEVEL 142 MEQ/L (136-145); TOTAL PROTEIN 6.6 GM/DL (6.4-8.2); TRIGLYCERIDES LEVEL 108 MG/DL (<150)
== END ==
LOC: M PLALAB 07:20
PROVIDERS: ATTEND Internal Medicine
DX: I25.10 Atherosclerotic heart disease of native coronary artery without angina pectoris (principal); E78.00 Pure hypercholesterolemia, unspecified

== ENCOUNTER → 2022-03-11 | Outpatient (CLI) | payer MEDICARE, BC, OTHER ==
[2022-03-11 10:45] LABS: BASO % 0.4 % (0.0-1.0); EOS # 0.2 10^3/uL (0.0-0.5); EOS % 2.2 % (0.0-3.0); HEMATOCRIT 46.3 % (36.0-47.0); HEMOGLOBIN 14.6 g/dl (12.0-15.5); LYMPH # 2.1 10^3/uL (1.5-5.0); MEAN CORPUSCULAR HGB CONC 31.5 g/dl (32.0-36.5); MEAN CORPUSCULAR VOLUME 95.1 fl (80.0-96.0); MONO # 0.4 10^3/uL (0.0-0.8); MONO % 5.3 % (2.0-8.0); NEUTROPHILS # 5.2 10^3/uL (1.5-8.5); NEUTROPHILS % 65.6 % (36.0-66.0); PLATELET COUNT, AUTOMATED 268 10^3/uL (150-450); RED BLOOD COUNT 4.87 10^6/uL (4.00-5.40); WHITE BLOOD COUNT 7.9 10^3/uL (4.0-10.0)
[2022-03-11 11:25] LABS: BLOOD UREA NITROGEN 19 MG/DL (7-18); CARBON DIOXIDE LEVEL 30 MEQ/L (21-32); CHLORIDE LEVEL 108 MEQ/L (98-107); CREATININE FOR GFR 0.66 MG/DL (0.55-1.30); FREE T4 0.86 NG/DL (0.76-1.46); GLOMERULAR FILTRATION RATE > 60.0 (>32); GLUCOSE, FASTING 213 MG/DL (70-100); POTASSIUM SERUM 4.1 MEQ/L (3.5-5.1); SODIUM LEVEL 145 MEQ/L (136-145)
[2022-03-11 11:31] LABS: CORTISOL AM 18.4 UG/DL (4.3-22.4); TOTAL 25(OH) VITAMIN D 60.9 NG/ML (30.0-100.0); VITAMIN B12 LEVEL 1000 PG/ML (247-911)
== END ==
LOC: M PLALAB 07:51
PROVIDERS: ATTEND Internal Medicine Hematology
DX: R42 Dizziness and giddiness (principal); E07.9 Disorder of thyroid, unspecified

== ENCOUNTER → 2022-07-21 | Outpatient (CLI) | payer MEDICARE, BC, OTHER ==
[2022-07-21 11:26] LABS: HEMOGLOBIN A1c 5.8 %
[2022-07-21 12:01] LABS: ALBUMIN 3.8 GM/DL (3.2-5.2); ALT/SGPT 15 U/L (12-78); BILIRUBIN,TOTAL 0.9 MG/DL (0.2-1.0); BLOOD UREA NITROGEN 18 MG/DL (7-18); CALCIUM LEVEL 9.6 MG/DL (8.8-10.2); CARBON DIOXIDE LEVEL 30 MEQ/L (21-32); CHLORIDE LEVEL 107 MEQ/L (98-107); CHOLESTEROL LEVEL 185 MG/DL (<200); CHOLESTEROL RISK RATIO 3.425 (<5); CREATININE FOR GFR 0.68 MG/DL (0.55-1.30); GLOMERULAR FILTRATION RATE > 60.0 (>32); GLUCOSE, FASTING 119 MG/DL (70-100); HDL CHOLESTEROL 54 MG/DL (>40); LDL CHOLESTEROL 105 MG/DL (<100); NON-HDL-C 131 MG/DL; POTASSIUM SERUM 4.2 MEQ/L (3.5-5.1); SODIUM LEVEL 142 MEQ/L (136-145); TOTAL PROTEIN 6.9 GM/DL (6.4-8.2); TRIGLYCERIDES LEVEL 129 MG/DL (<150)
[2022-07-21 12:47] LABS: TOTAL 25(OH) VITAMIN D 57.3 NG/ML (30.0-100.0)
== END ==
LOC: M PLALAB 07:10
PROVIDERS: ATTEND Internal Medicine
DX: E78.00 Pure hypercholesterolemia, unspecified (principal)

== ENCOUNTER → 2022-07-21 | Outpatient (CLI) | payer MEDICARE, BC, OTHER | LOC: M PLALAB 07:11 | PROVIDERS: ATTEND Physician Assistant | DX: R94.31 Abnormal electrocardiogram [ECG] [EKG] (principal) ==

== ENCOUNTER → 2023-09-08 | Outpatient (CLI) | payer MEDICARE, BC, OTHER ==
[2023-09-08 11:51] LABS: HEMOGLOBIN A1c 5.2 % (4.0-6.0)
[2023-09-08 11:57] LABS: THYROID STIMULATING HORMONE 2.857 uIU/ML (0.55-4.78)
[2023-09-08 11:58] LABS: ALBUMIN 3.6 G/DL (3.2-5.2); ALKALINE PHOSPHATASE 89 U/L (46-116); ALT/SGPT 11 U/L (7.0-40); AST/SGOT 15 U/L (<34); BILIRUBIN,TOTAL 0.8 MG/DL (0.3-1.2); BLOOD UREA NITROGEN 18 MG/DL (9-23); CALCIUM LEVEL 9.7 MG/DL (8.3-10.6); CARBON DIOXIDE LEVEL 30 MMOL/L (20-31); CHLORIDE LEVEL 106 MMOL/L (98-107); CHOLESTEROL LEVEL 172 MG/DL (<200); CHOLESTEROL RISK RATIO 3.63 (<5); CREATININE FOR GFR 0.72 MG/DL (0.55-1.30); GLOMERULAR FILTRATION RATE > 60.0 (>32); GLUCOSE, FASTING 115 MG/DL (74-106); HDL CHOLESTEROL 47.3 MG/DL (>40); LDL CHOLESTEROL 98.3 MG/DL (<100); NON-HDL-C 124.7 MG/DL; POTASSIUM SERUM 4.5 MMOL/L (3.5-5.1); SODIUM LEVEL 144 MMOL/L (136-145); TOTAL PROTEIN 6.5 G/DL (5.7-8.2); TRIGLYCERIDES LEVEL 132 MG/DL (<150)
[2023-09-08 11:59] LABS: FOLATE > 24.00 NG/ML (>5.4); VITAMIN B12 LEVEL 1120 PG/ML (211-911)
[2023-09-08 12:04] LABS: CREATININE, URINE 211.8 MG/DL; MAU/CREAT RATIO 12.7 MCG/MG (0.0-30.0)
== END ==
LOC: M PLALAB 07:25
PROVIDERS: ATTEND Nurse Practitioner Adult Health
DX: G62.9 Polyneuropathy, unspecified (principal); E78.00 Pure hypercholesterolemia, unspecified

== ENCOUNTER → 2024-04-13 | Outpatient (CLI) | payer MEDICARE, BC, OTHER ==
[~2024-04-13] MED LIST changes: -DOCU-153 PO; +STOO100C30 PO
[2024-04-13 12:27] LABS: HEMOGLOBIN A1c 5.5 % (4.0-6.0)
[2024-04-13 12:44] LABS: ALBUMIN 3.7 G/DL (3.2-5.2); ALKALINE PHOSPHATASE 86 U/L (46-116); ALT/SGPT 13 U/L (7.0-40); AST/SGOT 13 U/L (<34); BILIRUBIN,TOTAL 0.9 MG/DL (0.3-1.2); BLOOD UREA NITROGEN 16 MG/DL (9-23); CALCIUM LEVEL 9.7 MG/DL (8.3-10.6); CARBON DIOXIDE LEVEL 29 MMOL/L (20-31); CHLORIDE LEVEL 107 MMOL/L (98-107); CHOLESTEROL LEVEL 161 MG/DL (<200); CHOLESTEROL RISK RATIO 3.42 (<5); CREATININE FOR GFR 0.74 MG/DL (0.55-1.30); GLOMERULAR FILTRATION RATE > 60.0 (>32); GLUCOSE, FASTING 103 MG/DL (74-106); LDL CHOLESTEROL 91.8 MG/DL (<100); POTASSIUM SERUM 4.4 MMOL/L (3.5-5.1); SODIUM LEVEL 143 MMOL/L (136-145); TOTAL PROTEIN 6.3 G/DL (5.7-8.2); TRIGLYCERIDES LEVEL 111 MG/DL (<150)
[2024-04-13 12:46] LABS: FOLATE > 24.0 NG/ML (>5.4); VITAMIN B12 LEVEL 1385 PG/ML (211-911)
[2024-04-13 12:47] LABS: THYROID STIMULATING HORMONE 4.108 uIU/ML (0.55-4.78)
[2024-04-13 12:48] LABS: CREATININE, URINE 160.5 MG/DL
== END ==
LOC: M PLALAB 07:27
PROVIDERS: ATTEND Nurse Practitioner Adult Health
DX: I25.10 Atherosclerotic heart disease of native coronary artery without angina pectoris (principal); E07.9 Disorder of thyroid, unspecified

== ENCOUNTER 2024-12-18 13:20 | Emergency (ER) | payer MEDICARE, BC, OTHER ==
[~2024-12-18] VITALS: Ht 172.7 cm; Wt 67.3 kg
[2024-12-18 13:29] VITALS: TEMP 96.7
[2024-12-18] MEDS: ACETAMINOPHEN 325 MG TAB PO ONE (17:15)
[2024-12-18 17:58] VITALS: O2SAT 96
[2024-12-18 18:19] VITALS: BP 159/93; O2SAT 98
== END 2024-12-18 18:21 | disposition home or self-care (01) ==
LOC: M ED 13:20 → EDBD 13:20 → M ED 18:21
DX: M25.512 Pain in left shoulder (principal); M25.551 Pain in right hip; M25.552 Pain in left hip; I10 Essential (primary) hypertension; I25.2 Old myocardial infarction; E03.9 Hypothyroidism, unspecified; Z87.891 Personal history of nicotine dependence; Z88.0 Allergy status to penicillin; Z88.2 Allergy status to sulfonamides; Z88.8 Allergy status to other drugs, medicaments and biological substances; Z79.1 Long term (current) use of non-steroidal anti-inflammatories (NSAID); Z79.899 Other long term (current) drug therapy

== ENCOUNTER 2024-12-20 06:59 | Emergency (ER) | payer MEDICARE, BC, OTHER ==
[~2024-12-20] VITALS: Ht 175.3 cm; Wt 65.9 kg
[2024-12-20] MEDS ORDERED: ROSU10TA61 (07:16)
[2024-12-20] MEDS ORDERED: ESTR0.1C5 (07:16)
[2024-12-20] MEDS ORDERED: NITR0.4S14 (07:16)
[2024-12-20] MEDS ORDERED: IBUP-1022 PO (10:39)
[2024-12-20 10:45] VITALS: BP 170/80; TEMP 98.2; O2SAT 96
[2024-12-20] MEDS: KETOROLAC 30 MG/ML 1ML VIAL IM ONE (10:50)
== END 2024-12-20 11:06 | disposition home or self-care (01) ==
LOC: M ED 06:59
DX: M11.262 Other chondrocalcinosis, left knee (principal); I10 Essential (primary) hypertension; M81.0 Age-related osteoporosis without current pathological fracture; Z88.0 Allergy status to penicillin; Z88.2 Allergy status to sulfonamides; Z88.8 Allergy status to other drugs, medicaments and biological substances; Z79.1 Long term (current) use of non-steroidal anti-inflammatories (NSAID); Z79.899 Other long term (current) drug therapy
CPT/HCPCS: 73564; 96372; 99284; J1885

== ENCOUNTER 2025-01-13 14:50 | Inpatient (IN) | payer MEDICARE, BC ==
[~2025-01-13] VITALS: Ht 175.3 cm; Wt 64.1 kg
[~2025-01-13 14:50] MED LIST changes: +ESTR0.1C5 VG; +IBUP-1022 PO; +NITR0.4S14 SL; +ROSU10TA61 PO
[2025-01-13 15:46] LABS: BASO % 0.3 % (0.0-1.0); EOS # 0.3 10^3/uL (0.0-0.5); EOS % 3.1 % (0.0-3.0); HEMATOCRIT 46.8 % (36.0-47.0); HEMOGLOBIN 15.3 g/dl (12.0-15.5); LYMPH # 1.8 10^3/uL (1.5-5.0); LYMPH % 21.2 % (24.0-44.0); MEAN CORPUSCULAR HEMOGLOBIN 30.8 pg (27.0-33.0); MEAN CORPUSCULAR HGB CONC 32.7 g/dl (32.0-36.5); MEAN CORPUSCULAR VOLUME 94.4 fl (80.0-96.0); MONO # 0.6 10^3/uL (0.0-0.8); MONO % 6.5 % (2.0-8.0); NEUTROPHILS # 5.9 10^3/uL (1.5-8.5); NEUTROPHILS % 68.4 % (36.0-66.0); PLATELET COUNT, AUTOMATED 280 10^3/uL (150-450); RED BLOOD COUNT 4.96 10^6/uL (4.00-5.40); WHITE BLOOD COUNT 8.6 10^3/uL (4.0-10.0)
[2025-01-13] MEDS ORDERED: ISOVUE-370 76% 100ML VIAL As Ordered ONE (15:53)
[2025-01-13 16:06] LABS: INR 1.02; PARTIAL THROMBOPLASTIN TIME 29.7 SECONDS (24.8-34.2); PROTHROMBIN TIME 13.7 SECONDS (12.5-14.5)
[2025-01-13 16:13] LABS: ALBUMIN 3.2 G/DL (3.2-5.2); ALKALINE PHOSPHATASE 98 U/L (35-104); ALT/SGPT 17 U/L (7.0-40); AST/SGOT 15 U/L (<34); BILIRUBIN,DIRECT 0.1 MG/DL (<0.4); BILIRUBIN,TOTAL 0.4 MG/DL (0.3-1.2); BLOOD UREA NITROGEN 16 MG/DL (9-23); CALCIUM LEVEL 9.3 MG/DL (8.3-10.6); CARBON DIOXIDE LEVEL 28 MMOL/L (20-31); CHLORIDE LEVEL 108 MMOL/L (98-107); CK-MB VALUE MASS 3.1 NG/ML (<3.6); CPK CREATINE PHOSPHOKINASE 38 U/L (34-145); CREATININE FOR GFR 0.62 MG/DL (0.55-1.30); GLOMERULAR FILTRATION RATE > 60.0 (>32); GLUCOSE, FASTING 103 MG/DL (74-106); MB/CK RELATIVE INDEX 8.15 (< OR =4); POTASSIUM SERUM 4.1 MMOL/L (3.5-5.1); SODIUM LEVEL 144 MMOL/L (136-145); TOTAL PROTEIN 6.3 G/DL (5.7-8.2)
[2025-01-13] MEDS: MECLIZINE 25 MG TABLET PO ONE (16:44)
[2025-01-13] MEDS: NS 500 ML IV ONE (17:08)
[2025-01-13 17:55] LABS: CK-MB VALUE MASS 2.6 NG/ML (<3.6); MB/CK RELATIVE INDEX 5.3 (< OR =4)
[2025-01-13] MEDS ORDERED: PROHANCE 279.3MG/ML 5ML VIAL As Ordered ONE (18:36)
[2025-01-13] MEDS ORDERED: PROHANCE 279.3MG/ML 15ML VIAL As Ordered ONE (18:36)
[2025-01-13 20:10] LABS: CK-MB VALUE MASS 2.5 NG/ML (<3.6)
[2025-01-13 20:28] LABS: MB/CK RELATIVE INDEX 6.75 (< OR =4)
[2025-01-13] MEDS ORDERED: B-1100TA2 PO (22:31)
[2025-01-13] MEDS ORDERED: ACET-897 PO (22:31)
[2025-01-13] MEDS ORDERED: D3 H2000 PO (22:31)
[2025-01-13] MEDS ORDERED: VITA100T59 PO (22:31)
[2025-01-13] MEDS ORDERED: ASPI81CH33 PO (22:31)
[2025-01-13] MEDS ORDERED: CHOL10CA2 PO (22:31)
[2025-01-13] MEDS ORDERED: MAGN400C PO (22:36)
[2025-01-13] MEDS ORDERED: FOLI400T13 PO (22:36)
[2025-01-13] MEDS ORDERED: OMEG-19 PO (22:36)
[2025-01-13] MEDS ORDERED: CENT1TAB PO (22:36)
[2025-01-13] MEDS ORDERED: CALCCAP4 PO (22:36)
[2025-01-13] MEDS ORDERED: CVS500CA5 PO (22:36)
[2025-01-13] MEDS: NS (Normal Saline) 0.9% 1,000 ML IV SCH (22:37)
[2025-01-13] MEDS ORDERED: HOME MED LIST COMPLETE! XX SCH (22:40)
[2025-01-14] MEDS: HEPARIN SOD (PORCINE) 5000UNITS/ML 1ML VIAL/SYRINGE SC SCH (05:55)
[2025-01-14 07:13] LABS: BASO % 0.4 % (0.0-1.0); EOS # 0.3 10^3/uL (0.0-0.5); EOS % 3.6 % (0.0-3.0); HEMATOCRIT 46.3 % (36.0-47.0); HEMOGLOBIN 14.9 g/dl (12.0-15.5); LYMPH # 1.9 10^3/uL (1.5-5.0); LYMPH % 23.3 % (24.0-44.0); MEAN CORPUSCULAR HEMOGLOBIN 30.5 pg (27.0-33.0); MEAN CORPUSCULAR HGB CONC 32.2 g/dl (32.0-36.5); MEAN CORPUSCULAR VOLUME 94.7 fl (80.0-96.0); MONO # 0.6 10^3/uL (0.0-0.8); MONO % 6.9 % (2.0-8.0); NEUTROPHILS # 5.2 10^3/uL (1.5-8.5); NEUTROPHILS % 64.9 % (36.0-66.0); PLATELET COUNT, AUTOMATED 268 10^3/uL (150-450); RED BLOOD COUNT 4.89 10^6/uL (4.00-5.40); WHITE BLOOD COUNT 8.1 10^3/uL (4.0-10.0)
[2025-01-14 07:34] LABS: ALBUMIN 3.1 G/DL (3.2-5.2); ALKALINE PHOSPHATASE 86 U/L (35-104); ALT/SGPT 14 U/L (7.0-40); AST/SGOT 13 U/L (<34); BILIRUBIN,TOTAL 0.6 MG/DL (0.3-1.2); BLOOD UREA NITROGEN 12 MG/DL (9-23); CALCIUM LEVEL 9.3 MG/DL (8.3-10.6); CARBON DIOXIDE LEVEL 26 MMOL/L (20-31); CHLORIDE LEVEL 110 MMOL/L (98-107); CREATININE FOR GFR 0.54 MG/DL (0.55-1.30); GLOMERULAR FILTRATION RATE > 60.0 (>32); GLUCOSE, FASTING 108 MG/DL (74-106); MAGNESIUM LEVEL 2.2 MG/DL (1.8-2.4); POTASSIUM SERUM 4.1 MMOL/L (3.5-5.1); SODIUM LEVEL 146 MMOL/L (136-145); TOTAL PROTEIN 6.2 G/DL (5.7-8.2)
[2025-01-14 08:00] LABS: CHOLESTEROL LEVEL 163 MG/DL (<200); CHOLESTEROL RISK RATIO 4.23 (<5); HDL CHOLESTEROL 38.5 MG/DL (>40); LDL CHOLESTEROL 97.3 MG/DL (<100); NON-HDL-C 124.5 MG/DL; TRIGLYCERIDES LEVEL 136 MG/DL (<150)
[2025-01-14 08:22] LABS: HEMOGLOBIN A1c 5.5 % (4.0-6.0)
[2025-01-14] MEDS: ASPIRIN 81MG CHEW TABLET PO SCH (09:00)
[2025-01-14] MEDS: MECLIZINE 25 MG TABLET PO ONE (10:21)
[2025-01-14] MEDS ORDERED: NITROGLYCERIN 0.4MG SUBL TABLET SL SCH (12:10)
[2025-01-14 12:35] VITALS: BP 152/80; TEMP 97.3; O2SAT 95
[2025-01-14] MEDS ORDERED: NITROGLYCERIN 0.4MG SUBL TABLET SL PRN (13:25)
[2025-01-14] MEDS: MAGNESIUM OXIDE 400MG TAB (MAG-OX) PO SCH (13:35)
[2025-01-14] MEDS: amLODIPine 5 MG TAB PO SCH (13:37)
[2025-01-14] MEDS: MULTIVITAMINS/MINERALS THERAP 1 TAB PO SCH (13:38)
[2025-01-14] MEDS: TOPIRAMATE (TopAMAX) 25 MG TAB PO SCH (13:39)
[2025-01-14] MEDS: ACETAMINOPHEN 500 MG TAB PO SCH (13:39)
[2025-01-14 15:57] VITALS: BP_SYST 131; BP_SYST 151; BP_SYST 153; BP_DIAS 76; BP_DIAS 77; BP_DIAS 79
[2025-01-14 20:00] VITALS: BP 137/78; TEMP 97.5; O2SAT 94
[2025-01-14] MEDS: DOCUSATE SODIUM 100MG CAPSULE PO SCH (20:34)
[2025-01-14] MEDS: CALCIUM/VITAMIN D 500 MG TAB PO SCH (20:34)
[2025-01-14] MEDS: THIAMINE 100 MG TAB PO SCH (20:34)
[2025-01-15] VITALS: BP 157/95; TEMP 97.3; O2SAT 96
[2025-01-15 04:00] VITALS: BP 147/93; TEMP 97.2; O2SAT 94
[2025-01-15 06:18] LABS: BASO % 0.3 % (0.0-1.0); EOS # 0.2 10^3/uL (0.0-0.5); HEMATOCRIT 45.8 % (36.0-47.0); HEMOGLOBIN 15.1 g/dl (12.0-15.5); LYMPH # 1.7 10^3/uL (1.5-5.0); LYMPH % 14.2 % (24.0-44.0); MEAN CORPUSCULAR HEMOGLOBIN 30.9 pg (27.0-33.0); MEAN CORPUSCULAR VOLUME 93.7 fl (80.0-96.0); MONO # 0.8 10^3/uL (0.0-0.8); MONO % 7.1 % (2.0-8.0); PLATELET COUNT, AUTOMATED 262 10^3/uL (150-450); RED BLOOD COUNT 4.89 10^6/uL (4.00-5.40); WHITE BLOOD COUNT 11.9 10^3/uL (4.0-10.0)
[2025-01-15 06:49] LABS: BLOOD UREA NITROGEN 12 MG/DL (9-23); CALCIUM LEVEL 9.4 MG/DL (8.3-10.6); CARBON DIOXIDE LEVEL 26 MMOL/L (20-31); CHLORIDE LEVEL 109 MMOL/L (98-107); CREATININE FOR GFR 0.56 MG/DL (0.55-1.30); GLOMERULAR FILTRATION RATE > 60.0 (>32); GLUCOSE, FASTING 117 MG/DL (74-106); POTASSIUM SERUM 4.1 MMOL/L (3.5-5.1); SODIUM LEVEL 144 MMOL/L (136-145)
[2025-01-15 08:00] VITALS: BP 126/71; TEMP 97.2; O2SAT 94
[2025-01-15 09:00] VITALS: BP_SYST 125; BP_SYST 128; BP_SYST 97; BP_DIAS 66; BP_DIAS 72; BP_DIAS 74
[2025-01-15] MEDS: MECLIZINE 25 MG TABLET PO PRN (09:22)
[2025-01-15] MEDS: LR 1,000 ML IV ONE (13:47)
[2025-01-15 20:00] VITALS: BP 125/73; TEMP 97.3; O2SAT 96
[2025-01-16 04:00] VITALS: BP 147/90; TEMP 97.3; O2SAT 98
[2025-01-16 11:00] VITALS: BP_SYST 149; BP_SYST 154; BP_DIAS 85
[2025-01-16] MEDS: MECLIZINE 25 MG TABLET PO ONE (12:08)
[2025-01-16 12:45] VITALS: BP 138/86; TEMP 97.5; O2SAT 95
[2025-01-16 14:00] VITALS: BP_SYST 119; BP_SYST 122; BP_SYST 125; BP_DIAS 67; BP_DIAS 68; BP_DIAS 69
[2025-01-16] MEDS: FLUDROCORTISONE ACETATE 0.1 MG TAB PO SCH (14:27)
[2025-01-16] MEDS: ROSUVASTATIN 10 MG TAB (CRESTOR) PO SCH (18:34)
[2025-01-16 20:00] VITALS: BP 120/67; TEMP 97.5; O2SAT 95
[2025-01-16] MEDS: MECLIZINE 25 MG TABLET PO SCH (20:20)
[2025-01-17 03:54] VITALS: BP 137/75; TEMP 97.3; O2SAT 95
[2025-01-17 09:09] LABS: HEMATOCRIT 44.7 % (36.0-47.0); HEMOGLOBIN 14.5 g/dl (12.0-15.5); MEAN CORPUSCULAR HEMOGLOBIN 30.3 pg (27.0-33.0); MEAN CORPUSCULAR HGB CONC 32.4 g/dl (32.0-36.5); MEAN CORPUSCULAR VOLUME 93.5 fl (80.0-96.0); PLATELET COUNT, AUTOMATED 263 10^3/uL (150-450); RED BLOOD COUNT 4.78 10^6/uL (4.00-5.40); WHITE BLOOD COUNT 12.3 10^3/uL (4.0-10.0)
[2025-01-17 09:40] LABS: BLOOD UREA NITROGEN 17 MG/DL (9-23); CALCIUM LEVEL 9.1 MG/DL (8.3-10.6); CARBON DIOXIDE LEVEL 27 MMOL/L (20-31); CHLORIDE LEVEL 110 MMOL/L (98-107); CREATININE FOR GFR 0.75 MG/DL (0.55-1.30); GLOMERULAR FILTRATION RATE > 60.0 (>32); GLUCOSE, FASTING 112 MG/DL (74-106); MAGNESIUM LEVEL 1.9 MG/DL (1.8-2.4); POTASSIUM SERUM 3.7 MMOL/L (3.5-5.1); SODIUM LEVEL 146 MMOL/L (136-145)
[2025-01-17 14:21] LABS: C REACTIVE PROTEIN QUANTITATIV 17.83 MG/DL (<1.0)
[2025-01-17 14:28] LABS: PROCALCITONIN 0.14 ng/ml
[2025-01-17 14:33] VITALS: BP 140/76; TEMP 97.5; O2SAT 94
[2025-01-17 14:37] LABS: ERYTHROCYTE SEDIMENTATION RATE 46 mm/hr (0-30)
[2025-01-17 15:44] LABS: KETONE, URINE AUTO RFX TRACE mg/dL (NEGATIVE); NITRITE, URINE AUTO RFX NEGATIVE (NEGATIVE); RBC, URINE AUTO RFX 2 /HPF (0-3); SQUAM EPITHELIAL CELL UR AURFX 1 /HPF (0-6); WBC, URINE AUTO RFX 6 /HPF (0-3)
[2025-01-17 15:53] LABS: LEUKOCYTE ESTERASE UR AUTO RFX 2+ (NEGATIVE)
[2025-01-17 19:56] VITALS: BP 106/64; TEMP 97.3; O2SAT 96
[2025-01-18 03:28] VITALS: BP 142/84; TEMP 97.3; O2SAT 95
[2025-01-18 09:44] LABS: HEMATOCRIT 45.9 % (36.0-47.0); HEMOGLOBIN 15.1 g/dl (12.0-15.5); MEAN CORPUSCULAR HEMOGLOBIN 30.8 pg (27.0-33.0); MEAN CORPUSCULAR HGB CONC 32.9 g/dl (32.0-36.5); MEAN CORPUSCULAR VOLUME 93.5 fl (80.0-96.0); PLATELET COUNT, AUTOMATED 273 10^3/uL (150-450); RED BLOOD COUNT 4.91 10^6/uL (4.00-5.40); WHITE BLOOD COUNT 13.5 10^3/uL (4.0-10.0)
[2025-01-18 11:52] VITALS: BP_SYST 135; BP_SYST 137; BP_DIAS 77; BP_DIAS 80
[2025-01-18 12:00] VITALS: TEMP 97.3; O2SAT 96
[2025-01-18] MEDS: ONDANSETRON 4MG ORAL DISINTEGRATING TAB SL PRN (12:06)
[2025-01-18 20:39] VITALS: BP 120/65; TEMP 97.3; O2SAT 92
[2025-01-19 03:20] VITALS: BP 145/81; TEMP 97.5; O2SAT 94
[2025-01-19 05:50] LABS: HEMATOCRIT 42.3 % (36.0-47.0); MEAN CORPUSCULAR HEMOGLOBIN 30.6 pg (27.0-33.0); MEAN CORPUSCULAR HGB CONC 33.1 g/dl (32.0-36.5); MEAN CORPUSCULAR VOLUME 92.6 fl (80.0-96.0); PLATELET COUNT, AUTOMATED 274 10^3/uL (150-450); RED BLOOD COUNT 4.57 10^6/uL (4.00-5.40)
[2025-01-19 06:14] LABS: BLOOD UREA NITROGEN 22 MG/DL (9-23); CALCIUM LEVEL 9.1 MG/DL (8.3-10.6); CARBON DIOXIDE LEVEL 26 MMOL/L (20-31); CHLORIDE LEVEL 108 MMOL/L (98-107); CREATININE FOR GFR 0.66 MG/DL (0.55-1.30); GLOMERULAR FILTRATION RATE > 60.0 (>32); GLUCOSE, FASTING 97 MG/DL (74-106); POTASSIUM SERUM 3.7 MMOL/L (3.5-5.1); SODIUM LEVEL 145 MMOL/L (136-145)
[2025-01-19 12:00] VITALS: BP 167/92; TEMP 98.5; O2SAT 96
[2025-01-19] MEDS: MIDODRINE 5 MG TAB PO SCH (13:24)
[2025-01-19 13:26] VITALS: BP_SYST 102; BP_SYST 112; BP_SYST 149; BP_DIAS 59; BP_DIAS 71; BP_DIAS 80
[2025-01-19 17:15] VITALS: BP 134/70
[2025-01-19 20:00] VITALS: BP 135/63; TEMP 97.5; O2SAT 96
[2025-01-20 04:00] VITALS: BP 141/78; TEMP 97.5; O2SAT 96
[2025-01-20] MEDS: MECLIZINE 25 MG TABLET PO SCH (09:00)
[2025-01-20] MEDS: ACETAMINOPHEN 500 MG TAB PO SCH (09:00)
[2025-01-20] MEDS: ONDANSETRON 4MG ORAL DISINTEGRATING TAB SL SCH (09:00)
[2025-01-20] MEDS: SCOPOLAMINE 1MG TRANSDERMAL PATCH TOP SCH (10:15)
[2025-01-20] MEDS: LR 1,000 ML IV ONE (16:59)
[2025-01-21] MEDS: TAMSULOSIN 0.4 MG CAP PO ONE (06:14)
[2025-01-21 06:57] VITALS: BP 144/77; TEMP 97.5
[2025-01-21] MEDS ORDERED: ATROPINE SULFATE 1% OPHTH SOLN 2ML BTL SL PRN (17:30)
[2025-01-21] MEDS ORDERED: ONDANSETRON 4MG 2ML VIAL IV PRN (17:30)
[2025-01-21] MEDS ORDERED: BISACODYL 10MG SUPP PR PRN (17:30)
[2025-01-21] MEDS ORDERED: PROCHLORPERAZINE 10MG 2ML VIAL IV PRN (17:35)
[2025-01-21] MEDS: MORPHINE 2 MG/ML 1ML VIAL IV PRN (18:11)
[2025-01-21] MEDS: ONDANSETRON 4MG 2ML VIAL IV SCH (18:12)
[2025-01-22] MEDS ORDERED: LORazepam 1 MG TAB PO PRN (12:45)
[2025-01-22] MEDS ORDERED: MORPHINE 10MG/0.5ML ORAL CONCENTRATE SOLUTION U/D SL PRN (12:45)
[2025-01-22] MEDS ORDERED: ATROPINE SULFATE 1% OPHTH SOLN 2ML BTL SL PRN (12:45)
[2025-01-22] MEDS ORDERED: MIRALAX *UNIT DOSE* 17GM PACKET PO PRN (12:50)
[2025-01-22] MEDS: ONDANSETRON 4MG ORAL DISINTEGRATING TAB SL SCH (13:00)
[2025-01-22] MEDS ORDERED: ANALGESIC BALM CRM 3OZ TOP PRN (13:15)
[2025-01-22] MEDS: METOCLOPRAMIDE INJ 10MG/2ML VIAL IV SCH (13:29)
[2025-01-22] MEDS: LORazepam 2 MG/ML 1ML VIAL IV PRN (14:55)
[2025-01-23] MEDS ORDERED: LORazepam 2 MG/ML 1ML VIAL IV PRN (14:20)
[2025-01-23] MEDS: methylPREDNISolone 40MG 1ML VIAL IV ONE (15:02)
[2025-01-23] MEDS: LORazepam 0.5 MG TAB PO SCH (15:02)
[2025-01-23] MEDS: ONDANSETRON 4MG 2ML VIAL IV SCH (15:02)
[2025-01-23] MEDS: MORPHINE 10MG/0.5ML ORAL CONCENTRATE SOLUTION U/D SL SCH (17:25)
[2025-01-24] MEDS ORDERED: LORazepam 2 MG/ML 1ML VIAL IV PRN (15:10)
[2025-01-24] MEDS: LORazepam 1 MG TAB PO SCH (15:19)
[2025-01-24] MEDS ORDERED: MORPHINE 2 MG/ML 1ML VIAL IV PRN (15:30)
[2025-01-24] MEDS: MORPHINE 10MG/0.5ML ORAL CONCENTRATE SOLUTION U/D SL SCH (16:23)
[2025-01-25] MEDS: LORazepam 1 MG TAB PO SCH (12:58)
[2025-01-25] MEDS: METOCLOPRAMIDE INJ 10MG/2ML VIAL IV SCH (12:58)
[2025-01-25] MEDS: MORPHINE 10MG/0.5ML ORAL CONCENTRATE SOLUTION U/D SL SCH (12:58)
[2025-01-25] MEDS: ONDANSETRON 4MG ORAL DISINTEGRATING TAB PO SCH (14:00)
[2025-01-25] MEDS: ONDANSETRON 4MG 2ML VIAL IV PRN (17:16)
[2025-01-26] MEDS ORDERED: METOCLOPRAMIDE INJ 10MG/2ML VIAL IV PRN (12:15)
[2025-01-26] MEDS: MORPHINE 10MG/0.5ML ORAL CONCENTRATE SOLUTION U/D SL SCH (13:09)
[2025-01-27] MEDS: MORPHINE 10MG/0.5ML ORAL CONCENTRATE SOLUTION U/D SL PRN (01:54)
[2025-01-27] MEDS: LORazepam 1 MG TAB PO PRN (01:54)
[2025-01-30] MEDS ORDERED: ATIV1TAB7 PO (14:46)
[2025-01-30] MEDS ORDERED: MORP1SOL5 PO (14:46)
[2025-01-30] MEDS ORDERED: METH85CR11 TOP (14:46)
[2025-01-30] MEDS ORDERED: MIRA33506 PO (14:46)
[2025-01-30] MEDS ORDERED: ONDA-282 PO (14:46)
[2025-01-30] MEDS ORDERED: ATIV1TAB10 PO (14:46)
[2025-01-30] MEDS ORDERED: TRAN1DIS4 TOP (14:46)
[2025-01-30] MEDS ORDERED: BISA10SU PR (14:46)
[2025-01-30] MEDS ORDERED: ATRO2DRO4 SL (14:52)
== END 2025-01-31 10:39 | disposition hospice, inpatient (51) | DRG 149 ==
LOC: M ED 14:50 → EDBD 14:50 → M ED INP 14:51 → M MSPAV 01-14 12:38 → OBSVTOIN 01-17 12:27
PROVIDERS: ADMIT Family Medicine; ATTEND Student in an Organized Health Care Education/Training Program
DX: H81.399 Other peripheral vertigo, unspecified ear (principal); E87.0 Hyperosmolality and hypernatremia; I25.10 Atherosclerotic heart disease of native coronary artery without angina pectoris; Z66 Do not resuscitate; G62.9 Polyneuropathy, unspecified; I10 Essential (primary) hypertension; I95.1 Orthostatic hypotension; R11.0 Nausea; D32.9 Benign neoplasm of meninges, unspecified; I65.21 Occlusion and stenosis of right carotid artery; E78.5 Hyperlipidemia, unspecified; I16.0 Hypertensive urgency; I25.2 Old myocardial infarction; Z95.5 Presence of coronary angioplasty implant and graft; Z87.891 Personal history of nicotine dependence; Z79.82 Long term (current) use of aspirin; Z79.899 Other long term (current) drug therapy; Z88.0 Allergy status to penicillin; Z88.2 Allergy status to sulfonamides; Z88.5 Allergy status to narcotic agent; Z88.8 Allergy status to other drugs, medicaments and biological substances; S46.011A Strain of muscle(s) and tendon(s) of the rotator cuff of right shoulder, initial encounter; X58.XXXA Exposure to other specified factors, initial encounter; Y92.9 Unspecified place or not applicable